=== PATIENT | male | born 1975 | race Caucasian/White ===

== ENCOUNTER 2016-11-23 13:21 | Inpatient (IN) | payer OTHER ==
[2016-11-23 14:12] VITALS: BMI 26.7
--- NOTE | 2016-11-23 14:17 | PN ---
Xital Signs Vital Signs: Vital Signs - 24 hr 11/23/16 14:04 Temperature 97.6 F Pulse Rate 83 Respiratory 18 Rate Blood Pressure 124/69 Medical/Surgical History - Patient Medical History Hx Anemia: No Hx Asthma: Yes (on albuterol inhaler) Hx Chronic Obstructive Pulmonary Disease (COPD): No Hx Cancer: No Hx Cardiac Disorders: No Hx Congestive Heart Failure: No Hx Hypertension: No Hx Hypercholesterolemia: No Hx Pacemaker: No HX Cerebrovascular Accident: No Hx Seizures: No Hx Dementia: No Hx Diabetes: No Hx Gastrointestinal Disorders: No Hx Liver Disease: No Hx Genitourinary Disorders: No Hx Sexually Transmitted Disorders: No Hx Renal Disease (ESRD): No Hx Thyroid Disease: No Hx Human Immunodeficiency Virus (HIV): No (negative last 2013) Hx Hepatitis C: No Hx Depression: Yes Hx Suicide Attempt: No Hx Bipolar Disorder: Yes (and anxiety on Seroquel and Lexapro) Hx Schizophrenia: No - Patient Surgical History Past Surgical History: No Hx Neurologic Surgery: No Hx Cataract Extraction: No Hx Cardiac Surgery: No Hx Lung Surgery: No Hx Breast Surgery: No Hx Breast Biopsy: No Hx Abdominal Surgery: No Hx Appendectomy: No Hx Cholecystectomy: No Hx Genitourinary Surgery: No Hx Section: No Hx Orthopedic Surgery: No Anesthesia Reaction: No - Substances Abused Heroin Route: Injection Frequency: Daily Amount used: 10 to 20 bags Age of first use: 22 Date of Last Use: 11/22/16 street methadone Route: Oral Frequency: 1-2 times per week Amount used: 60 to 80 mgs Age of first use: 41 Date of Last Use: 11/21/16 oxycodone Route: Oral Frequency: 3-6 times per week Amount used: 160 mgs to 240 mgs Age of first use: 37 Date of Last Use: 11/21/16 BHS Breath Alcohol Content Breath Alcohol Content: 0 Urine Drug Screen - Test Device Lot Number: [id number] Expiration Date: 05/08/18 - Control Is Test Valid: Yes - Results Drug Screen Negative: No Urine Drug Screen Results: OPI-Opiates, MTD-Methadone, OXY-Oxycodone
--- NOTE | 2016-11-23 14:26 | HP ---
COWS - Scale Resting Pulse: 1= [place] 81-100 Sweatin= Chills/Flushing Restless Observation: 3= Extraneous Movement Pupil Size: 2= Moderately Dilated Bone or Joint Aches: 2= Severe Diffuse Aches Runny Nose/ Eye Tearin= Runny Nose/Eyes GI Upset > 30mins: 3= Vomiting/Diarrhea Tremor Observation: 2= Slight Tremor Visible Yawning Observation: 2= >3x During Session Anxiety or Irritability: 2=Irritable/Anxious Goose Flesh Skin: 0=Smooth Skin COWS Score: 20 Admission ROS S - HPI Chief Complaint: i need help to stop using heroin,street methadon and oxycodone Allergies/Adverse Reactions: Allergies Allergy/AdvReac Type Severity Reaction Status Date / Time Fish Containing Products Allergy Intermediate Verified 06/09/16 14:27 No Known Drug Allergies Allergy Verified 06/09/16 14:27 History of Present Illness: this 41 years old male with heroin,methadone and oxycodone dependence,seek help to stop using,withdrawal symptom, last detox [facility] 06/09/16 to 06/12/16 several admissions in detox in the past longest period of sobriety 2 years anxiety and depression Exam Limitations: No Limitations - Ebola screening Have you traveled outside of the country in the last 21 days: No (N) Have you had contact with anyone from an Ebola affected area: No Have you been sick,other than usual withdrawal symptoms: No Do you have a fever: No - Review of Systems Constitutional: Chills, Diaphoresis, Loss of Appetite, Malaise, Night Sweats, Changes in sleep, Weakness, Unintentional Wgt. Loss EENT: reports: Tearing, Nose Congestion Respiratory: reports: No Symptoms reported, Other (asthma) Cardiac: reports: Palpitations GI: reports: Diarrhea, Nausea, Vomiting, Abdominal cramping : reports: No Symptoms Reported Musculoskeletal: reports: Back Pain, Joint Pain, Muscle Pain Integumentary: reports: Dryness Endocrine: reports: No Symptoms Reported Hematology: reports: No Symptoms Reported Psychiatric: reports: Anxious, Depressed Patient History - Patient Medical History Hx Anemia: No Hx Asthma: Yes (on albuterol inhaler) Hx Chronic Obstructive Pulmonary Disease (COPD): No Hx Cancer: No Hx Cardiac Disorders: No Hx Congestive Heart Failure: No Hx Hypertension: No Hx Hypercholesterolemia: No Hx Pacemaker: No HX Cerebrovascular Accident: No Hx Seizures: No Hx Dementia: No Hx Diabetes: No Hx Gastrointestinal Disorders: No Hx Liver Disease: No Hx Genitourinary Disorders: No Hx Sexually Transmitted Disorders: No Hx Renal Disease (ESRD): No Hx Thyroid Disease: No Hx Human Immunodeficiency Virus (HIV): No (negative last 2013) Hx Hepatitis C: No Hx Depression: Yes Hx Suicide Attempt: No Hx Bipolar Disorder: Yes (and anxiety on Seroquel and Lexapro) Hx Schizophrenia: No Other Medical History: no suicidal,no homicidal - Patient Surgical History Past Surgical History: No Hx Neurologic Surgery: No Hx Cataract Extraction: No Hx Cardiac Surgery: No Hx Lung Surgery: No Hx Breast Surgery: No Hx Breast Biopsy: No Hx Abdominal Surgery: No Hx Appendectomy: No Hx Cholecystectomy: No Hx Genitourinary Surgery: No Hx Section: No Hx Orthopedic Surgery: No Anesthesia Reaction: No - PPD History Previous Implant?: Yes Documented Results: Positive w/o proof Date: 05/31/15 Results: CXR NEG 11/24 PPD to be Administered?: No - Smoking Cessation Smoking history: Current every day smoker Have you smoked in the past 12 months: Yes Aproximately how many cigarettes per day: 20 Hx Chewing Tobacco Use: No Initiated information on smoking cessation: Yes 'Breaking Loose' booklet given: 11/23/16 - Substance & Tx. History Hx Alcohol Use: No Hx Substance Use: Yes Substance Use Type: Heroin, Opiates Hx Substance Use Treatment: Yes ([facility] 06/09/16 to 06/12/16 not completed) - Substances Abused Heroin Route: Injection Frequency: Daily Amount used: 10 to 20 bags Age of first use: 22 Date of Last Use: 11/22/16 street methadone Route: Oral Frequency: 1-2 times per week Amount used: 60 to 80 mgs Age of first use: 41 Date of Last Use: 11/21/16 oxycodone Route: Oral Frequency: 3-6 times per week Amount used: 160 mgs to 240 mgs Age of first use: 37 Date of Last Use: 11/21/16 Family Disease History - Family Disease History Family Disease History: Diabetes: Grandparent (etoh), Other: Grandparent, Father (heroin/alive) Admission Physical Exam BHS - Vital Signs Vital Signs: Vital Signs - 24 hr 11/23/16 14:04 Temperature 97.6 F Pulse Rate 83 Respiratory 18 Rate Blood Pressure 124/69 - Physical General Appearance: Yes: Moderate Distress, Tremorous, Irritable, Sweating, Anxious HEENTM: Yes: Nasal Congestion Respiratory: Yes: Lungs Clear Neck: Yes: Within Normal Limits Breast: Yes: Within Normal Limits Cardiology: Yes: Within Normal Limits, Regular Rhythm, Regular Rate, S1, S2 Abdominal: Yes: Within Normal Limits, Normal Bowel Sounds, Non Tender, Flat, Soft Genitourinary: Yes: Within Normal Limits Back: Yes: Muscle Spasm Musculoskeletal: Yes: Back pain, Joint Stiffness, Muscle Pain Extremities: Yes: Tremors Neurological: Yes: Within Normal Limits, 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 II-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 NML intact, Fully Oriented, Alert Integumentary: Yes: Dry Lymphatic: Yes: Within Normal Limits - Diagnostic (1) Positive PPD Current Visit: No Status: Acute (2) Weight loss Current Visit: No Status: Acute (3) Asthma Current Visit: No Status: Chronic Qualifiers: Asthma severity: unspecified severity Asthma complication type: uncomplicated Qualified Code(s): J45.909 - Unspecified asthma, uncomplicated (4) Bipolar II disorder Current Visit: No Status: Chronic (5) Nicotine dependence Current Visit: No Status: Chronic Qualifiers: Nicotine product type: cigarettes Substance use status: uncomplicated Qualified Code(s): F17.210 - Nicotine dependence, cigarettes, uncomplicated (6) Opioid dependence with withdrawal Current Visit: No Status: Chronic Cleared for Admission S - Detox or Rehab [facility] Level of Care: Medically Managed Detox Regimen/Protocol: Methadone S Breath Alcohol Content Breath Alcohol Content: 0 Vital Signs - Vital Signs Vital Signs Refused: No Temperature: 97.6 F Temperature Source: Oral Pulse Rate: 83 Respiratory Rate: 18 Blood Pressure: 124/69 BP Location: Left Arm - Height Height: 5 ft 8 in - Weight Weight: 176 lb Weight Measurement Method: Standing Scale Body Mass Index (BMI): 26.7 Urine Drug Screen - Test Device Lot Number: [id number] Expiration Date: 05/08/18 - Control Is Test Valid: Yes - Results Drug Screen Negative: No Urine Drug Screen Results: OPI-Opiates, MTD-Methadone, OXY-Oxycodone
[2016-11-23] MEDS ORDERED: P-EPHED 60MG/TRIPROLIDI 2.5MG TABLET PO PRN (14:50)
[2016-11-23] MEDS ORDERED: MAGNESIUM HYDROX 2400MG/30ML ORAL SUSPENSION 30 ML CUP PO PRN (14:50)
[2016-11-23] MEDS ORDERED: MENTHOL/PHENOL 1 EACH UD MM PRN (14:50)
[2016-11-23] MEDS ORDERED: LOPERAMIDE HCL 2 MG CAPSULE PO PRN (14:50)
[2016-11-23] MEDS ORDERED: guaiFENesin/D-METHORPHAN HB 10 ML UNIT-DOSE CUPS PO PRN (14:50)
[2016-11-23] MEDS ORDERED: METHADONE HCL 10 MG TABLET (FOR DETOX USE ONLY) PO ONE ×2 (14:50→23:00)
[2016-11-23] MEDS ORDERED: MAGNESIUM CITRATE 300 ML BOTTLE PO PRN (14:50)
[2016-11-23] MEDS ORDERED: NICOTINE POLACRILEX 2 MG GUM BUC PRN (14:50)
[2016-11-23] MEDS ORDERED: ACETAMINOPHEN 325 MG TABLET (FP) PO PRN (14:50)
[2016-11-23] MEDS ORDERED: MAG HYDROX/AL HYDROX/SIMETH 30 ML UNIT-DOSE CUP PO PRN (14:50)
[2016-11-23] MEDS: CYCLOBENZAPRINE HCL 10 MG TABLET (FP) PO PRN (16:16)
[2016-11-23] MEDS: NICOTINE 21 MG/24 HOURS TOPICAL PATCH TD SCH (16:16)
[2016-11-23] MEDS: diazePAM 5 MG TABLET PO PRN ×2 (16:17→22:28)
[2016-11-23 17:33] LABS: URINE APPEARANCE CLEAR; URINE BILIRUBIN NEGATIVE (NEGATIVE); URINE COLOR YELLOW; URINE GLUCOSE (UA) NEGATIVE (NEGATIVE); URINE KETONE NEGATIVE (NEGATIVE); URINE LEUK ESTERASE NEGATIVE (NEGATIVE); URINE NITRITE NEGATIVE (NEGATIVE); URINE PROTEIN NEGATIVE (NEGATIVE); URINE UROBILINOGEN NEGATIVE E.U./dl (0.2-1.0)
[2016-11-23 17:34] LABS: URINE BLOOD 1+ (NEGATIVE)
[2016-11-23 17:44] LABS: URINE MUCUS RARE; URINE RBC 3 /hpf (0-3); URINE WBC 1 /hpf (3-5)
[2016-11-23] MEDS: cloNIDine HCL 0.1 MG TABLET PO SCH (22:26)
[2016-11-23] MEDS: THIAMINE HCL 100 MG TABLET (FP) PO SCH (22:26)
[2016-11-23] MEDS: diphenhydrAMINE HCL 50 MG CAPSULE PO PRN (22:26)
[2016-11-24] MEDS: diazePAM 5 MG TABLET PO PRN ×4 (05:49→22:18)
[2016-11-24] MEDS: CYCLOBENZAPRINE HCL 10 MG TABLET (FP) PO PRN (05:49)
--- NOTE | 2016-11-24 09:24 | EKG ---
Test Reason : Blood Pressure : / mmHG Vent. Rate : 082 BPM Atrial Rate : 082 BPM P-R Int : 134 ms QRS Dur : 084 ms QT Int : 378 ms P-R-T Axes : 067 066 034 degrees QTc Int : 441 ms NORMAL SINUS RHYTHM NORMAL ECG NO PREVIOUS ECGS AVAILABLE Confirmed by JUDSON HUA MD ([id number]) on 11/24/2016 9:24:11 AM Referred By: Confirmed By:JUDSON HUA MD
[2016-11-24] MEDS ORDERED: METHADONE HCL 10 MG TABLET (FOR DETOX USE ONLY) PO ONE (10:00)
[2016-11-24 10:09] LABS: ALBUMIN 3.4 g/dl (3.4-5.0); ALK PHOS 64 U/L (45-117); ANION GAP 6 (8-16); BILIRUBIN,TOTAL 0.3 mg/dL (0.2-1.0); CALCIUM 8.9 mg/dL (8.5-10.1); CO2 29 mmol/L (21-32); CREATININE 0.8 mg/dL (0.7-1.3); GLUCOSE,RANDOM 81 mg/dL (74-106); SGOT/AST 12 U/L (15-37); SGPT/ALT 15 U/L (12-78); TOT PROT 6.3 g/dl (6.4-8.2)
--- NOTE | 2016-11-24 10:16 | CONSULT ---
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 Substance Abuse History: reports using heroin since 22 years old(10 bages daily) ,pain killers on and off. Medical History: Significant for BA,Positive PPD history. Psychiatric History: Reports psychiatric issues since 14 years old mostly behavioral problems,anxiety,depression.He was on therapy for a while.Patient started psychotropic medications since HS when he was dx with Bipolar disorder.He was placed on Seroquel,Lexapro with good response.Patient reports no psychiatric admissions,no h/o suicidal attempts.No psychiatric follow up for a while.Patient used to obtain psychiatric medications from local ER.He is willing to restasrt Laxapro 20 mg po daily and Seroquel 100 mg po hs. Physical/Sexual Abuse/Trauma History: denies Mental Status Exam - Mental Status Exam Alert and Oriented to: Time, Place, Person Cognitive Function: Grossly Intact Patient Appearance: Unkempt Mood: Nervous Affect: Labile Patient Behavior: Cooperative Speech Pattern: Clear Voice Loudness: Normal Thought Process: Goal Oriented Thought Disorder: Not Present Hallucinations: Denies Suicidal Ideation: Denies Homicidal Ideation: Denies Insight/Judgement: Fair Sleep: Fair Appetite: Fair Muscle strength/Tone: Normal Gait/Station: Normal Psychiatric Findings - Problem List ([place] 1, 2,3) (1) Positive PPD Current Visit: Yes Status: Chronic (2) Weight loss Current Visit: Yes Status: Chronic (3) Asthma Current Visit: Yes Status: Chronic Qualifiers: Asthma severity: unspecified severity Asthma complication type: uncomplicated Qualified Code(s): J45.909 - Unspecified asthma, uncomplicated (4) Bipolar II disorder Current Visit: Yes Status: Chronic (5) Cannabis dependence Current Visit: Yes Status: Chronic (6) Nicotine dependence Current Visit: No Status: Chronic Qualifiers: Nicotine product type: cigarettes Substance use status: uncomplicated Qualified Code(s): F17.210 - Nicotine dependence, cigarettes, uncomplicated - Initial Treatment Plan Initial Treatment Plan: Restart Lexapro 20 mg po daily and Seroquel 100 mg po hs.
--- NOTE | 2016-11-24 10:24 | PN ---
BHS COWS - Scale Resting Pulse: 1= [place] 81-100 Sweatin=Flushed/Facial Moisture Restless Observation: 1= Difficult to Sit Still Pupil Size: 0= Normal to Room Light Bone or Joint Aches: 2= Severe Diffuse Aches Runny Nose/ Eye Tearin= Runny Nose/Eyes GI Upset > 30mins: 2= Nausea/Diarrhea Tremor Observation of Outstretched Hands: 2= Slight Tremor Visible Yawning Observation: 1= 1-2x During Session Anxiety or Irritability: 2=Irritable/Anxious Goose Flesh Skin: 0=Smooth Skin COWS Score: 15 BHS Progress Note (SOAP) Subjective: ANXIETY,TREMORS,SWEATING,INTERRUPTED SLEEP,RESTLESS. Objective: 11/24/16 10:23 Vital Signs - 8 hr 11/24/16 11/24/16 03:30 06:37 Temperature 97.2 F L Pulse Rate 81 Respiratory 18 16 Rate Blood Pressure 103/68 Laboratory Tests 11/23/16 11:00 Urine Color Yellow Urine Appearance Clear Urine pH 5.0 Ur Specific [place] 1.029 Urine Protein Negative Urine Glucose (UA) Negative Urine Ketones Negative Urine Blood 1+ H Urine Nitrite Negative Urine Bilirubin Negative Urine Urobilinogen Negative Ur Leukocyte Esterase Negative Urine RBC 3 Urine WBC 1 Ur Epithelial Cells Rare Urine Mucus Rare U/A NOTED Assessment: 11/24/16 10:23 WITHDRAWAL SX. Plan: CONTINUE DETOX
[2016-11-24] MEDS: cloNIDine HCL 0.1 MG TABLET PO SCH ×2 (10:33→22:19)
[2016-11-24] MEDS: PRENATAL VITAMINS W/ FOLIC ACID TABLET (FP) PO SCH (10:33)
[2016-11-24] MEDS: NICOTINE 21 MG/24 HOURS TOPICAL PATCH TD SCH (10:34)
[2016-11-24 10:39] LABS: MCH 30.9 pg (25.7-33.7); MCHC 34.7 g/dl (32.0-35.9); MEAN CELL VOLUME 89.1 fl (80-96); MEAN PLT VOLUME 7.6 fl (7.5-11.1); PLATELET COUNT 413 K/MM3 (134-434); RDW 14.4 % (11.9-15.9); WHITE BLOOD COUNT 8.3 K/mm3 (4.0-10.0)
[2016-11-24 11:59] LABS: HIV 1 & 2 AB NEGATIVE; HIV 1 AGp24 NEGATIVE
[2016-11-24] MEDS ORDERED: PNEUMOC 13-VAL CONJ-DIP CRM/PF 0.5 ML DISP.SYRIN IM ONE (12:00)
[2016-11-24] MEDS ORDERED: INFLUENZA VACCINE 45 MCG/0.5 ML (MDV 16-17) IM ONE (12:00)
[2016-11-24] MEDS ORDERED: PNEUMOCOCCAL 23 VACCINE 0.5 ML VIAL IM ONE (12:00)
[2016-11-24] MEDS: ESCITALOPRAM OXALATE 20 MG TABLET (FP) PO SCH (12:30)
[2016-11-24] MEDS: IBUPROFEN 400 MG TABLET (FP) PO PRN (16:50)
[2016-11-24] MEDS: QUEtiapine FUMARATE 100 MG TABLET (FP) PO SCH (22:18)
[2016-11-24] MEDS: diphenhydrAMINE HCL 50 MG CAPSULE PO PRN (22:18)
[2016-11-24] MEDS: THIAMINE HCL 100 MG TABLET (FP) PO SCH (22:18)
[2016-11-25] MEDS: CYCLOBENZAPRINE HCL 10 MG TABLET (FP) PO PRN (03:26)
[2016-11-25] MEDS: IBUPROFEN 400 MG TABLET (FP) PO PRN ×2 (03:26→17:15)
[2016-11-25] MEDS: diazePAM 5 MG TABLET PO PRN ×3 (03:28→22:29)
[2016-11-25] MEDS ORDERED: METHADONE HCL 5 MG TABLET (FOR DETOX USE ONLY) PO ONE (10:00)
[2016-11-25] MEDS: ESCITALOPRAM OXALATE 20 MG TABLET (FP) PO SCH (10:23)
[2016-11-25] MEDS: cloNIDine HCL 0.1 MG TABLET PO SCH ×2 (10:23→22:26)
[2016-11-25] MEDS: PRENATAL VITAMINS W/ FOLIC ACID TABLET (FP) PO SCH (10:23)
[2016-11-25] MEDS: NICOTINE 21 MG/24 HOURS TOPICAL PATCH TD SCH (10:24)
--- NOTE | 2016-11-25 11:42 | PN ---
BHS COWS - Scale Resting Pulse: 1= [place] 81-100 Sweatin=Flushed/Facial Moisture Restless Observation: 1= Difficult to Sit Still Pupil Size: 0= Normal to Room Light Bone or Joint Aches: 4=Acute Joint/Muscle Pain (LEFT SHOULDER PAIN) Runny Nose/ Eye Tearin= Runny Nose/Eyes GI Upset > 30mins: 2= Nausea/Diarrhea Tremor Observation of Outstretched Hands: 2= Slight Tremor Visible Yawning Observation: 1= 1-2x During Session Anxiety or Irritability: 2=Irritable/Anxious Goose Flesh Skin: 0=Smooth Skin COWS Score: 17 BHS Progress Note (SOAP) Subjective: ANXIETY,SWEATING,INTERRUPTED SLEEP,ACUTE LT. SHOULDER PAIN,MUSCLE SPASM. Objective: 11/25/16 11:41 Vital Signs - 8 hr 11/25/16 11/25/16 06:18 09:19 Temperature 97 F L 97.4 F L Pulse Rate 96 H 92 H Respiratory 18 18 Rate Blood Pressure 120/75 111/68 Laboratory Tests 11/23/16 11/24/16 11/24/16 11:00 08:00 08:00 WBC 8.3 RBC 4.42 Hgb 13.7 Hct 39.4 MCV 89.1 MCHC 34.7 RDW 14.4 Plt Count 413 MPV 7.6 Sodium Potassium Chloride Carbon Dioxide Anion Gap BUN Creatinine Creat Clearance w eGFR Random Glucose Calcium Total Bilirubin AST ALT Alkaline Phosphatase Total Protein Albumin Urine Color Yellow Urine Appearance Clear Urine pH 5.0 Ur Specific [place] 1.029 Urine Protein Negative Urine Glucose (UA) Negative Urine Ketones Negative Urine Blood 1+ H Urine Nitrite Negative Urine Bilirubin Negative Urine Urobilinogen Negative Ur Leukocyte Esterase Negative Urine RBC 3 Urine WBC 1 Ur Epithelial Cells Rare Urine Mucus Rare RPR Titer HIV 1&2 Antibody Screen Negative HIV P24 Antigen Negative 11/24/16 11/24/16 08:00 08:00 WBC RBC Hgb Hct MCV MCHC RDW Plt Count MPV Sodium 138 Potassium 4.0 Chloride 103 Carbon Dioxide 29 Anion Gap 6 L BUN 12 Creatinine 0.8 Creat Clearance w eGFR > 60 Random Glucose 81 Calcium 8.9 Total Bilirubin 0.3 AST 12 L ALT 15 D Alkaline Phosphatase 64 Total Protein 6.3 L Albumin 3.4 Urine Color Urine Appearance Urine pH Ur Specific [place] Urine Protein Urine Glucose (UA) Urine Ketones Urine Blood Urine Nitrite Urine Bilirubin Urine Urobilinogen Ur Leukocyte Esterase Urine RBC Urine WBC Ur Epithelial Cells Urine Mucus RPR Titer Nonreactive HIV 1&2 Antibody Screen HIV P24 Antigen LABS NOTED Assessment: 11/25/16 11:42 WITHDRAWAL SX. Plan: CONTINUE DETOX
[2016-11-25] MEDS: QUEtiapine FUMARATE 100 MG TABLET (FP) PO SCH (22:26)
[2016-11-25] MEDS: diphenhydrAMINE HCL 50 MG CAPSULE PO PRN (22:27)
[2016-11-25] MEDS: THIAMINE HCL 100 MG TABLET (FP) PO SCH (22:27)
[2016-11-26] MEDS: diazePAM 5 MG TABLET PO PRN ×2 (05:42→10:33)
[2016-11-26] MEDS: CYCLOBENZAPRINE HCL 10 MG TABLET (FP) PO PRN (05:42)
[2016-11-26] MEDS ORDERED: METHADONE HCL 5 MG TABLET (FOR DETOX USE ONLY) PO ONE (10:00)
[2016-11-26] MEDS: PRENATAL VITAMINS W/ FOLIC ACID TABLET (FP) PO SCH (10:31)
[2016-11-26] MEDS: NICOTINE 21 MG/24 HOURS TOPICAL PATCH TD SCH (10:32)
[2016-11-26] MEDS: ESCITALOPRAM OXALATE 20 MG TABLET (FP) PO SCH (10:32)
[2016-11-26] MEDS: cloNIDine HCL 0.1 MG TABLET PO SCH ×2 (10:32→22:22)
[2016-11-26] MEDS: IBUPROFEN 400 MG TABLET (FP) PO PRN (12:49)
--- NOTE | 2016-11-26 15:43 | PN ---
BHS Progress Note (SOAP) Subjective: SWEATING,INTERRUPTED SLEEP,RESTLESS Objective: 11/26/16 15:42 Vital Signs - 8 hr 11/26/16 11/26/16 09:53 14:30 Temperature 97.0 F L 97.2 F L Pulse Rate 95 H 85 Respiratory 20 16 Rate Blood Pressure 101/68 97/63 Laboratory Last Values WBC 8.3 K/mm3 (4.0-10.0) 11/24/16 08:00 RBC 4.42 M/mm3 (4.00-5.60) 11/24/16 08:00 Hgb 13.7 GM/dL (11.7-16.9) 11/24/16 08:00 Hct 39.4 % (35.4-49) 11/24/16 08:00 MCV 89.1 fl (80-96) 11/24/16 08:00 MCHC 34.7 g/dl (32.0-35.9) 11/24/16 08:00 RDW 14.4 % (11.9-15.9) 11/24/16 08:00 Plt Count 413 K/MM3 (134-434) 11/24/16 08:00 MPV 7.6 fl (7.5-11.1) 11/24/16 08:00 Sodium 138 mmol/L (136-145) 11/24/16 08:00 Potassium 4.0 mmol/L (3.5-5.1) 11/24/16 08:00 Chloride 103 mmol/L (98-107) 11/24/16 08:00 Carbon Dioxide 29 mmol/L (21-32) 11/24/16 08:00 Anion Gap 6 (8-16) L 11/24/16 08:00 BUN 12 mg/dL (7-18) 11/24/16 08:00 Creatinine 0.8 mg/dL (0.7-1.3) 11/24/16 08:00 Creat Clearance w eGFR > 60 (>60) 11/24/16 08:00 Random Glucose 81 mg/dL (74-106) 11/24/16 08:00 Calcium 8.9 mg/dL (8.5-10.1) 11/24/16 08:00 Total Bilirubin 0.3 mg/dL (0.2-1.0) 11/24/16 08:00 AST 12 U/L (15-37) L 11/24/16 08:00 ALT 15 U/L (12-78) D 11/24/16 08:00 Alkaline Phosphatase 64 U/L (45-117) 11/24/16 08:00 Total Protein 6.3 g/dl (6.4-8.2) L 11/24/16 08:00 Albumin 3.4 g/dl (3.4-5.0) 11/24/16 08:00 Urine Color Yellow 11/23/16 11:00 Urine Appearance Clear 11/23/16 11:00 Urine pH 5.0 (5.0-8.0) 11/23/16 11:00 Ur Specific [place] 1.029 (1.001-1.035) 11/23/16 11:00 Urine Protein Negative (NEGATIVE) 11/23/16 11:00 Urine Glucose (UA) Negative (NEGATIVE) 11/23/16 11:00 Urine Ketones Negative (NEGATIVE) 11/23/16 11:00 Urine Blood 1+ (NEGATIVE) H 11/23/16 11:00 Urine Nitrite Negative (NEGATIVE) 11/23/16 11:00 Urine Bilirubin Negative (NEGATIVE) 11/23/16 11:00 Urine Urobilinogen Negative E.U./dl (0.2-1.0) 11/23/16 11:00 Ur Leukocyte Esterase Negative (NEGATIVE) 11/23/16 11:00 Urine RBC 3 /hpf (0-3) 11/23/16 11:00 Urine WBC 1 /hpf (3-5) 11/23/16 11:00 Ur Epithelial Cells Rare /hpf (FEW) 11/23/16 11:00 Urine Mucus Rare 11/23/16 11:00 RPR Titer Nonreactive (NONREACTIVE) 11/24/16 08:00 HIV 1&2 Antibody Screen Negative 11/24/16 08:00 HIV P24 Antigen Negative 11/24/16 08:00 LABS NOTED Assessment: 11/26/16 15:42 WITHDRAWAL SX. Plan: CONTINUE DETOX
[2016-11-26] MEDS: hydrOXYzine PAMOATE 50 MG CAPSULE (FP) PO PRN (17:18)
[2016-11-26] MEDS: QUEtiapine FUMARATE 100 MG TABLET (FP) PO SCH (22:22)
[2016-11-26] MEDS: THIAMINE HCL 100 MG TABLET (FP) PO SCH (22:22)
[2016-11-26] MEDS: diphenhydrAMINE HCL 50 MG CAPSULE PO PRN (22:22)
[2016-11-27] MEDS: CYCLOBENZAPRINE HCL 10 MG TABLET (FP) PO PRN (05:53)
[2016-11-27] MEDS: hydrOXYzine PAMOATE 50 MG CAPSULE (FP) PO PRN ×2 (05:53→22:24)
[2016-11-27] MEDS ORDERED: METHADONE HCL 10 MG TABLET (FOR DETOX USE ONLY) PO ONE (10:00)
[2016-11-27] MEDS: ESCITALOPRAM OXALATE 20 MG TABLET (FP) PO SCH (10:22)
[2016-11-27] MEDS: PRENATAL VITAMINS W/ FOLIC ACID TABLET (FP) PO SCH (10:22)
[2016-11-27] MEDS: NICOTINE 21 MG/24 HOURS TOPICAL PATCH TD SCH (10:23)
[2016-11-27] MEDS: cloNIDine HCL 0.1 MG TABLET PO SCH ×2 (10:23→22:24)
[2016-11-27] MEDS: IBUPROFEN 400 MG TABLET (FP) PO PRN (17:41)
--- NOTE | 2016-11-27 20:43 | PN ---
[id number] Vital Signs - 8 hr 11/27/16 11/27/16 14:22 18:00 Temperature 96.8 F L 97.4 F L Pulse Rate 89 86 Respiratory 18 18 Rate Blood Pressure 104/63 99/58 Assessment: 11/27/16 20:43 WITHDRAWAL SX. Plan: CONTINUE DETOX
[2016-11-27] MEDS: THIAMINE HCL 100 MG TABLET (FP) PO SCH (22:24)
[2016-11-27] MEDS: QUEtiapine FUMARATE 100 MG TABLET (FP) PO SCH (22:24)
[2016-11-28] MEDS ORDERED: METHADONE HCL 5 MG TABLET (FOR DETOX USE ONLY) PO ONE (06:00)
[2016-11-28] MEDS: CYCLOBENZAPRINE HCL 10 MG TABLET (FP) PO PRN (06:03)
[2016-11-28] MEDS: hydrOXYzine PAMOATE 50 MG CAPSULE (FP) PO PRN ×2 (06:03→22:29)
[2016-11-28] MEDS: PRENATAL VITAMINS W/ FOLIC ACID TABLET (FP) PO SCH (10:24)
[2016-11-28] MEDS: NICOTINE 21 MG/24 HOURS TOPICAL PATCH TD SCH (10:24)
[2016-11-28] MEDS: ESCITALOPRAM OXALATE 20 MG TABLET (FP) PO SCH (10:24)
[2016-11-28] MEDS: cloNIDine HCL 0.1 MG TABLET PO SCH ×2 (10:24→22:28)
[2016-11-28] MEDS: IBUPROFEN 400 MG TABLET (FP) PO PRN (10:26)
--- NOTE | 2016-11-28 15:39 | PN ---
BHS Progress Note (SOAP) Subjective: no complaints Objective: 11/28/16 15:38 Vital Signs - 24 hr 11/27/16 11/27/16 11/28/16 18:00 21:52 00:29 Temperature 97.4 F L 97.4 F L Pulse Rate 86 80 Respiratory 18 18 18 Rate Blood Pressure 99/58 107/69 11/28/16 11/28/16 11/28/16 03:28 06:05 09:37 Temperature 97.0 F L 98.5 F Pulse Rate 81 88 Respiratory 18 16 18 Rate Blood Pressure 106/65 105/65 11/28/16 13:35 Temperature Pulse Rate 85 Respiratory 18 Rate Blood Pressure 98/64 Laboratory Tests 11/23/16 11/24/16 11/24/16 11:00 08:00 08:00 WBC 8.3 RBC 4.42 Hgb 13.7 Hct 39.4 MCV 89.1 MCHC 34.7 RDW 14.4 Plt Count 413 MPV 7.6 Sodium Potassium Chloride Carbon Dioxide Anion Gap BUN Creatinine Creat Clearance w eGFR Random Glucose Calcium Total Bilirubin AST ALT Alkaline Phosphatase Total Protein Albumin Urine Color Yellow Urine Appearance Clear Urine pH 5.0 Ur Specific [place] 1.029 Urine Protein Negative Urine Glucose (UA) Negative Urine Ketones Negative Urine Blood 1+ H Urine Nitrite Negative Urine Bilirubin Negative Urine Urobilinogen Negative Ur Leukocyte Esterase Negative Urine RBC 3 Urine WBC 1 Ur Epithelial Cells Rare Urine Mucus Rare RPR Titer HIV 1&2 Antibody Screen Negative HIV P24 Antigen Negative 11/24/16 11/24/16 08:00 08:00 WBC RBC Hgb Hct MCV MCHC RDW Plt Count MPV Sodium 138 Potassium 4.0 Chloride 103 Carbon Dioxide 29 Anion Gap 6 L BUN 12 Creatinine 0.8 Creat Clearance w eGFR > 60 Random Glucose 81 Calcium 8.9 Total Bilirubin 0.3 AST 12 L ALT 15 D Alkaline Phosphatase 64 Total Protein 6.3 L Albumin 3.4 Urine Color Urine Appearance Urine pH Ur Specific [place] Urine Protein Urine Glucose (UA) Urine Ketones Urine Blood Urine Nitrite Urine Bilirubin Urine Urobilinogen Ur Leukocyte Esterase Urine RBC Urine WBC Ur Epithelial Cells Urine Mucus RPR Titer Nonreactive HIV 1&2 Antibody Screen HIV P24 Antigen Assessment: 11/28/16 15:39 completed detox, medically stable Plan: d/c today
--- NOTE | 2016-11-28 15:51 | DS ---
[facility] Detox Discharge Summary Admission Date: 11/23/16 Discharge Date: 11/28/16 - History Present History: Cannabis Dependence, Opioid Dependence Pertinent Past History: asthma, anxiety, depression, insomnia, bipolar do, nicotine dependence - Physical Exam Results Vital Signs: Vital Signs Temperature 98.5 F 11/28/16 09:37 Pulse Rate 85 11/28/16 13:35 Respiratory Rate 18 11/28/16 13:35 Blood Pressure 98/64 11/28/16 13:35 O2 Sat by Pulse Oximetry (%) Pertinent Admission Physical Exam Findings: withdrawal sx - Treatment Hospital Course: Detox Protocol Followed, Detoxed Safely, Responded well, Discharged Condition Good, Rehab Referral Accepted Patient has Accepted a Rehab Referral to: Yes - Medication Discharge Medications: Ambulatory Orders Albuterol Sulfate Inhaler - [Ventolin Hfa Inhaler -] 2 inh PO Q4H PRN 08/31/15 Quetiapine Fumarate [Seroquel -] 200 mg PO HS 02/26/16 Escitalopram Oxalate [Lexapro -] 20 mg PO DAILY #30 tablet 02/27/16 Escitalopram Oxalate [Lexapro -] 20 mg PO DAILY #30 tablet 11/24/16 Quetiapine Fumarate [Seroquel -] 100 mg PO HS #30 tablet MDD 100 11/24/16 - Diagnosis (1) Asthma Current Visit: Yes Status: Chronic Qualifiers: Asthma severity: unspecified severity Asthma complication type: uncomplicated Qualified Code(s): J45.909 - Unspecified asthma, uncomplicated (2) Bipolar II disorder Current Visit: Yes Status: Chronic (3) Cannabis dependence Current Visit: Yes Status: Chronic (4) Positive PPD Current Visit: Yes Status: Chronic (5) Weight loss Current Visit: Yes Status: Chronic (6) Drug-induced mood disorder Current Visit: No Status: Acute (7) Nicotine dependence Current Visit: No Status: Chronic Qualifiers: Nicotine product type: cigarettes Substance use status: uncomplicated Qualified Code(s): F17.210 - Nicotine dependence, cigarettes, uncomplicated (8) Opioid dependence with withdrawal Current Visit: No Status: Chronic - AMA Did Patient Leave Against Medical Advice: No
[2016-11-28] MEDS: THIAMINE HCL 100 MG TABLET (FP) PO SCH (22:28)
[2016-11-28] MEDS: QUEtiapine FUMARATE 100 MG TABLET (FP) PO SCH (22:28)
[2016-11-29 06:23] VITALS: BP 96/60; PULSE 81; TEMP 97.9
[2016-11-29] MEDS: IBUPROFEN 400 MG TABLET (FP) PO PRN (08:01)
== END 2016-11-29 09:15 | disposition home or self-care (01) | DRG 773 ==
LOC: YASAS 13:21 → Y3N 15:07
PROVIDERS: ADMIT Internal Medicine; ATTEND Internal Medicine
PROC: HZ2ZZZZ Detoxification Services for Substance Abuse Treatment (ICD-10-PCS; principal; 2016-11-23)
DX: F11.23 Opioid dependence with withdrawal (principal); F12.20 Cannabis dependence, uncomplicated; F17.210 Nicotine dependence, cigarettes, uncomplicated; F31.81 Bipolar II disorder; F19.24 Other psychoactive substance dependence with psychoactive substance-induced mood disorder; J45.909 Unspecified asthma, uncomplicated; R76.11 Nonspecific reaction to tuberculin skin test without active tuberculosis; Z87.898 Personal history of other specified conditions
CPT/HCPCS: 36415; 71010-TC; 73000-TC-LT; 73030-TC-LT; 80053; 81003; 81015; 85027; 86593; 87389; 90732; 93005; 93010; G0009

== ENCOUNTER 2017-03-15 14:05 | Inpatient (IN) | payer SELFPAY ==
[2017-03-15 14:42] VITALS: BMI 25.8
--- NOTE | 2017-03-15 16:27 | HP ---
COWS - Scale Resting Pulse: 2= [place] 101-120 Sweatin=Flushed/Facial Moisture Restless Observation: 1= Difficult to Sit Still Pupil Size: 2= Moderately Dilated Bone or Joint Aches: 2= Severe Diffuse Aches Runny Nose/ Eye Tearin= Runny Nose/Eyes GI Upset > 30mins: 2= Nausea/Diarrhea Tremor Observation: 2= Slight Tremor Visible Yawning Observation: 1= 1-2x During Session Anxiety or Irritability: 2=Irritable/Anxious Goose Flesh Skin: 0=Smooth Skin COWS Score: 18 Admission ROS S - [facility] Chief Complaint: Withdrawal sx. Allergies/Adverse Reactions: Allergies Allergy/AdvReac Type Severity Reaction Status Date / Time Fish Containing Products Allergy Intermediate Verified 03/15/17 15:32 No Known Drug Allergies Allergy Verified 03/15/17 15:32 History of Present Illness: 41 y/o man with a long hx. of drug dependence is admitted for detox. Pt. has been in previous detox,denies significant period drug free. Exam Limitations: No Limitations - Ebola screening Have you traveled outside of the country in the last 21 days: No Have you had contact with anyone from an Ebola affected area: No Have you been sick,other than usual withdrawal symptoms: No Do you have a fever: No - Review of Systems Constitutional: Diaphoresis EENT: reports: Nose Congestion Respiratory: reports: No Symptoms reported Cardiac: reports: No Symptoms Reported GI: reports: Nausea, Abdominal cramping : reports: No Symptoms Reported Musculoskeletal: reports: Back Pain, Joint Pain, Muscle Pain Integumentary: reports: Sweating Neuro: reports: Tremors Endocrine: reports: No Symptoms Reported Hematology: reports: No Symptoms Reported Psychiatric: reports: No Sypmtoms Reported Other Systems: Reviewed and Negative Patient History - Patient Medical History Hx Anemia: No Hx Asthma: Yes (albuterol) Hx Chronic Obstructive Pulmonary Disease (COPD): No Hx Cancer: No Hx Cardiac Disorders: No Hx Congestive Heart Failure: No Hx Hypertension: No Hx Hypercholesterolemia: No Hx Pacemaker: No HX Cerebrovascular Accident: No Hx Seizures: No Hx Dementia: No Hx Diabetes: No Hx Gastrointestinal Disorders: No Hx Liver Disease: No Hx Genitourinary Disorders: No Hx Sexually Transmitted Disorders: No Hx Renal Disease (ESRD): No Hx Thyroid Disease: No Hx Human Immunodeficiency Virus (HIV): No Hx Hepatitis C: No Hx Depression: Yes Hx Suicide Attempt: No Hx Bipolar Disorder: Yes (and anxiety on Seroquel and Lexapro) Hx Schizophrenia: No - Patient Surgical History Past Surgical History: No Hx Neurologic Surgery: No Hx Cataract Extraction: No Hx Cardiac Surgery: No Hx Lung Surgery: No Hx Breast Surgery: No Hx Breast Biopsy: No Hx Abdominal Surgery: No Hx Appendectomy: No Hx Cholecystectomy: No Hx Genitourinary Surgery: No Hx Section: No Hx Orthopedic Surgery: No Anesthesia Reaction: No - PPD History Previous Implant?: Yes Documented Results: Positive w/o proof Implanted On Prior [facility] Admission?: No Date: 11/25/16 Results: CXR NEG on 11/25 PPD to be Administered?: No - Smoking Cessation Smoking history: Current every day smoker Have you smoked in the past 12 months: Yes Aproximately how many cigarettes per day: 20 Cigars Per Day: 0 Hx Chewing Tobacco Use: No Initiated information on smoking cessation: Yes 'Breaking Loose' booklet given: 03/15/17 - Substance & Tx. History Hx Alcohol Use: No Hx Substance Use: Yes Substance Use Type: Heroin Hx Substance Use Treatment: Yes (Detox) - Substances Abused Heroin Route: Injection Frequency: Daily Amount used: 10 BAGS Age of first use: 25 Date of Last Use: 03/15/17 Family Disease History - Family Disease History Family Disease History: Heart Disease: Grandparent (etoh,HTN), Other: Grandparent, Father (heroin/alive) Admission Physical Exam BHS - Vital Signs Vital Signs: Vital Signs - 24 hr 03/15/17 14:37 Temperature 97.9 F Pulse Rate 110 H Respiratory 18 Rate Blood Pressure 126/75 - Physical General Appearance: Yes: Sweating, Anxious HEENTM: Yes: TM Buldging, Nasal Congestion Respiratory: Yes: Chest Non-Tender, Lungs Clear, Normal Breath Sounds Neck: Yes: Supple Breast: Yes: Breast Exam Deferred Cardiology: Yes: Regular Rhythm, Regular Rate, S1, S2 Abdominal: Yes: Normal Bowel Sounds, Non Tender, Soft Genitourinary: Yes: Within Normal Limits Back: Yes: Within Normal Limits Musculoskeletal: Yes: full range of Motion Extremities: Yes: Tremors Neurological: Yes: Fully Oriented, Alert Integumentary: Yes: Diaphoresis Lymphatic: Yes: Within Normal Limits - Diagnostic (1) Asthma Current Visit: Yes Status: Chronic Qualifiers: Asthma severity: mild intermittent Asthma complication type: uncomplicated Qualified Code(s): J45.20 - Mild intermittent asthma, uncomplicated (2) Cannabis dependence Current Visit: Yes Status: Chronic (3) Nicotine dependence Current Visit: Yes Status: Chronic Qualifiers: Nicotine product type: cigarettes Substance use status: uncomplicated Qualified Code(s): F17.210 - Nicotine dependence, cigarettes, uncomplicated (4) Opioid dependence with withdrawal Current Visit: Yes Status: Chronic (5) Positive PPD Current Visit: No Status: Chronic Cleared for Admission [facility] - Detox or Rehab [facility] Level of Care: Medically Managed Detox Regimen/Protocol: Methadone [facility] Breath Alcohol Content Breath Alcohol Content: 0 Urine Drug Screen - Results Drug Screen Negative: No Urine Drug Screen Results: THC-Marijuana, OPI-Opiates, MTD-Methadone
[2017-03-15] MEDS ORDERED: MAGNESIUM CITRATE 300 ML BOTTLE PO PRN (16:34)
[2017-03-15] MEDS ORDERED: METHADONE HCL 10 MG TABLET (FOR DETOX USE ONLY) PO ONE ×2 (16:34→23:00)
[2017-03-15] MEDS ORDERED: MAGNESIUM HYDROX 2400MG/30ML ORAL SUSPENSION 30 ML CUP PO PRN (16:34)
[2017-03-15] MEDS ORDERED: P-EPHED 60MG/TRIPROLIDI 2.5MG TABLET PO PRN (16:34)
[2017-03-15] MEDS ORDERED: NICOTINE POLACRILEX 4 MG GUM BC PRN (16:34)
[2017-03-15] MEDS ORDERED: guaiFENesin/D-METHORPHAN HB 10 ML UNIT-DOSE CUPS PO PRN (16:34)
[2017-03-15] MEDS ORDERED: LOPERAMIDE HCL 2 MG CAPSULE PO PRN (16:34)
[2017-03-15] MEDS ORDERED: diphenhydrAMINE HCL 50 MG CAPSULE PO PRN (16:34)
[2017-03-15] MEDS ORDERED: hydrOXYzine PAMOATE 50 MG CAPSULE (FP) PO PRN (16:34)
[2017-03-15] MEDS ORDERED: MENTHOL/PHENOL 1 EACH UD MM PRN (16:34)
[2017-03-15] MEDS ORDERED: ACETAMINOPHEN 325 MG TABLET (FP) PO PRN (16:34)
[2017-03-15] MEDS ORDERED: MAG HYDROX/AL HYDROX/SIMETH 30 ML UNIT-DOSE CUP PO PRN (16:34)
[2017-03-15] MEDS ORDERED: ALBUTEROL SO4 6.7 GM HFA INHALER IH PRN (16:36)
[2017-03-15] MEDS ORDERED: ALBUTEROL SO4 2.5/IPRATROPIUM 0.5 INH SOL 3 ML VIAL.NEB. NEB PRN (16:36)
[2017-03-15] MEDS: diazePAM 5 MG TABLET PO PRN (17:58)
[2017-03-15] MEDS: NICOTINE 21 MG/24 HOURS TOPICAL PATCH TD SCH (18:53)
[2017-03-15 19:44] LABS: URINE APPEARANCE CLEAR; URINE BILIRUBIN NEGATIVE (NEGATIVE); URINE BLOOD NEGATIVE (NEGATIVE); URINE COLOR DKYELLOW; URINE GLUCOSE (UA) NEGATIVE (NEGATIVE); URINE KETONE TRACE (NEGATIVE); URINE LEUK ESTERASE NEGATIVE (NEGATIVE); URINE NITRITE NEGATIVE (NEGATIVE); URINE PROTEIN NEGATIVE (NEGATIVE); URINE UROBILINOGEN NEGATIVE E.U./dl (0.2-1.0)
[2017-03-15] MEDS: THIAMINE HCL 100 MG TABLET (FP) PO SCH (22:03)
[2017-03-16] MEDS: diazePAM 5 MG TABLET PO PRN ×4 (04:57→22:25)
[2017-03-16] MEDS ORDERED: HALOPERIDOL 5 MG TABLET (FP) PO PRN (08:58)
--- NOTE | 2017-03-16 08:58 | CONSULT ---
[facility] Psychiatric Consult - Data Date of interview: 03/16/17 Admission source: [facility] Identifying data: This is 41 years old male with history of Bipolar Disorder, no psychiatric hospitalization history intoxicated with: Opioids, Cannabis and Nicotine Substance Abuse History: Smoking Cessation. Smoking history: Current every day smoker. Have you smoked in the past 12 months: Yes. Aproximately how many cigarettes per day: 20. Cigars Per Day: 0. Hx Chewing Tobacco Use: No. Initiated information on smoking cessation: Yes. 'Breaking Loose' booklet given : 03/15/17. - Substance & Tx. History. Hx Alcohol Use: No. Hx Substance Use: Yes. Substance Use Type: Heroin. Hx Substance Use Treatment: Yes (Detox). - Substances Abused. Heroin. Route: Injection. Frequency: Daily. Amount used: 10 BAGS. Age of first use: 25. Date of Last Use: 03/15/17 Medical History: PPD+ history, Weight loss history Psychiatric History: Patien reprots to carry Bipolar Disorder, reprots taking porior to admsision: Seroquel 200mg pop qhs. Lexapro 20mg poqd Physical/Sexual Abuse/Trauma History: Denies Additional Comment: Seroquel 200mg pop qhs. Lexapro 20mg poqd Mental Status Exam - Mental Status Exam Alert and Oriented to: Person Cognitive Function: Fair Mood: Sad Affect: Mood Congruent Patient Behavior: Cooperative Speech Pattern: Appropriate Voice Loudness: Mildly Soft/Quiet Thought Process: Goal Oriented Thought Disorder: Being Controlled Hallucinations: Denies Suicidal Ideation: Denies Homicidal Ideation: Denies Insight/Judgement: Fair Sleep: Difficulty falling asleep Appetite: Weight loss Muscle strength/Tone: Mild Hypotonicity Gait/Station: Normal Additional Comments: Seroquel 200mg pop qhs. Lexapro 20mg poqd Psychiatric Findings - Problem List ([place] 1, 2,3) (1) Cannabis dependence Current Visit: Yes Status: Chronic (2) Nicotine dependence Current Visit: Yes Status: Chronic Qualifiers: Nicotine product type: cigarettes Substance use status: uncomplicated Qualified Code(s): F17.210 - Nicotine dependence, cigarettes, uncomplicated (3) Opioid dependence with withdrawal Current Visit: Yes Status: Chronic (4) Drug-induced mood disorder Current Visit: No Status: Acute (5) Bipolar II disorder Current Visit: No Status: Chronic (6) Weight loss Current Visit: No Status: Chronic - Initial Treatment Plan Initial Treatment Plan: Seroquel 200mg pop qhs. Lexapro 20mg poqd
[2017-03-16] MEDS ORDERED: METHADONE HCL 10 MG TABLET (FOR DETOX USE ONLY) PO ONE (10:00)
[2017-03-16] MEDS ORDERED: HALOPERIDOL 5 MG TABLET (FP) PO SCH (10:00)
[2017-03-16] MEDS ORDERED: QUEtiapine FUMARATE 50 MG TABLET PO SCH (10:00)
[2017-03-16 10:02] LABS: MCH 30.3 pg (25.7-33.7); MCHC 34.5 g/dl (32.0-35.9); MEAN CELL VOLUME 87.8 fl (80-96); MEAN PLT VOLUME 7.4 fl (7.5-11.1); PLATELET COUNT 404 K/MM3 (134-434); RDW 14.1 % (11.9-15.9)
[2017-03-16] MEDS: PRENATAL VITAMINS W/ FOLIC ACID TABLET (FP) PO SCH (10:09)
[2017-03-16] MEDS: ESCITALOPRAM OXALATE 20 MG TABLET (FP) PO SCH (10:11)
[2017-03-16] MEDS: NICOTINE 21 MG/24 HOURS TOPICAL PATCH TD SCH (10:11)
[2017-03-16 10:20] LABS: ALBUMIN 3.4 g/dl (3.4-5.0); ANION GAP 8 (8-16); CALCIUM 8.5 mg/dL (8.5-10.1); CO2 26 mmol/L (21-32); GLUCOSE,RANDOM 86 mg/dL (74-106)
[2017-03-16 10:24] LABS: ALK PHOS 64 U/L (45-117); BILIRUBIN,TOTAL 0.7 mg/dL (0.2-1.0); COCKROFT - GAULT 154.52; CREATININE 0.7 mg/dL (0.7-1.3); SGOT/AST 13 U/L (15-37); SGPT/ALT 21 U/L (12-78); TOT PROT 6.3 g/dl (6.4-8.2)
--- NOTE | 2017-03-16 11:16 | PN ---
[facility] COWS - Scale Resting Pulse: 1= [place] 81-100 Sweatin=Flushed/Facial Moisture Restless Observation: 1= Difficult to Sit Still Pupil Size: 1= Pupils >than Normal Bone or Joint Aches: 2= Severe Diffuse Aches Runny Nose/ Eye Tearin= Runny Nose/Eyes GI Upset > 30mins: 1= Stomach Cramp Tremor Observation of Outstretched Hands: 1= Tremor [place], Not Seen Yawning Observation: 0= None Anxiety or Irritability: 2=Irritable/Anxious Goose Flesh Skin: 0=Smooth Skin COWS Score: 13 BHS Progress Note (SOAP) Subjective: interrupted sleep, sweats, shakes, nasal congestion , knee and back pain Objective: 03/16/17 11:14 Vital Signs Temperature 98.2 F 03/16/17 09:51 Pulse Rate 94 H 03/16/17 09:51 Respiratory Rate 18 03/16/17 09:51 Blood Pressure 125/83 03/16/17 09:51 O2 Sat by Pulse Oximetry (%) Laboratory Tests 03/15/17 03/16/17 03/16/17 19:30 07:00 07:00 WBC 13.0 H D RBC 4.51 Hgb 13.6 Hct 39.6 MCV 87.8 MCHC 34.5 RDW 14.1 Plt Count 404 MPV 7.4 L Sodium 140 Potassium 4.2 Chloride 106 Carbon Dioxide 26 Anion Gap 8 BUN 15 D Creatinine 0.7 Creat Clearance w eGFR > 60 Random Glucose 86 Calcium 8.5 Total Bilirubin 0.7 D AST 13 L ALT 21 D Alkaline Phosphatase 64 Total Protein 6.3 L Albumin 3.4 Urine Color Dkyellow Urine Appearance Clear Urine pH 5.0 Urine Protein Negative Urine Glucose (UA) Negative Urine Ketones Trace H Urine Blood Negative Urine Nitrite Negative Urine Bilirubin Negative Urine Urobilinogen Negative Ur Leukocyte Esterase Negative pt aox3 ambulating , nasal congestion Assessment: 03/16/17 11:14 withdrawal sx's Plan: cont. detox increase fluids motrin prn
[2017-03-16] MEDS ORDERED: busPIRone HCL 5 MG TABLET PO SCH (14:00)
[2017-03-16] MEDS: IBUPROFEN 400 MG TABLET (FP) PO PRN (17:18)
[2017-03-16] MEDS ORDERED: MIRTAZAPINE 15 MG TABLET (FP) PO SCH (22:00)
[2017-03-16] MEDS: THIAMINE HCL 100 MG TABLET (FP) PO SCH (22:21)
[2017-03-16] MEDS: QUEtiapine FUMARATE 200 MG TABLET PO SCH (22:21)
[2017-03-17] MEDS: diazePAM 5 MG TABLET PO PRN ×4 (04:01→22:06)
[2017-03-17] MEDS ORDERED: METHADONE HCL 5 MG TABLET (FOR DETOX USE ONLY) PO ONE (10:00)
[2017-03-17 10:03] LABS: BASOPHIL 0.4 % (0-2.0); EOSINOPHIL 0.7 % (0-4.5); MCH 30.3 pg (25.7-33.7); MCHC 34.5 g/dl (32.0-35.9); MEAN CELL VOLUME 87.9 fl (80-96); MEAN PLT VOLUME 7.3 fl (7.5-11.1); PLATELET COUNT 427 K/MM3 (134-434); RDW 14.4 % (11.9-15.9); WHITE BLOOD COUNT 9.2 K/mm3 (4.0-10.0)
[2017-03-17] MEDS: ESCITALOPRAM OXALATE 20 MG TABLET (FP) PO SCH (10:10)
[2017-03-17] MEDS: PRENATAL VITAMINS W/ FOLIC ACID TABLET (FP) PO SCH (10:10)
[2017-03-17] MEDS: NICOTINE 21 MG/24 HOURS TOPICAL PATCH TD SCH (10:12)
[2017-03-17] MEDS ORDERED: TRIMETHOBENZAMIDE HCL 300 MG CAPSULE PO PRN (10:25)
--- NOTE | 2017-03-17 10:40 | PN ---
BHS COWS - Scale Resting Pulse: 1= [place] 81-100 Sweatin= Chills/Flushing Restless Observation: 1= Difficult to Sit Still Pupil Size: 0= Normal to Room Light Bone or Joint Aches: 2= Severe Diffuse Aches Runny Nose/ Eye Tearin= None GI Upset > 30mins: 2= Nausea/Diarrhea Tremor Observation of Outstretched Hands: 2= Slight Tremor Visible Yawning Observation: 1= 1-2x During Session Anxiety or Irritability: 2=Irritable/Anxious Goose Flesh Skin: 0=Smooth Skin COWS Score: 12 BHS Progress Note (SOAP) Subjective: nausea body aches sweats interrupted sleep Objective: 03/17/17 10:39 Vital Signs Temperature 96.8 F L 03/17/17 05:58 Pulse Rate 75 03/17/17 05:58 Respiratory Rate 16 03/17/17 05:58 Blood Pressure 113/64 03/17/17 05:58 O2 Sat by Pulse Oximetry (%) Laboratory Tests 03/15/17 03/16/17 03/16/17 19:30 07:00 07:00 WBC 13.0 H D RBC 4.51 Hgb 13.6 Hct 39.6 MCV 87.8 MCHC 34.5 RDW 14.1 Plt Count 404 MPV 7.4 L Neutrophils % Lymphocytes % Monocytes % Eosinophils % Basophils % Sodium 140 Potassium 4.2 Chloride 106 Carbon Dioxide 26 Anion Gap 8 BUN 15 D Creatinine 0.7 Creat Clearance w eGFR > 60 Random Glucose 86 Calcium 8.5 Total Bilirubin 0.7 D AST 13 L ALT 21 D Alkaline Phosphatase 64 Total Protein 6.3 L Albumin 3.4 Urine Color Dkyellow Urine Appearance Clear Urine pH 5.0 Ur Specific [place] >= 1.030 H Urine Protein Negative Urine Glucose (UA) Negative Urine Ketones Trace H Urine Blood Negative Urine Nitrite Negative Urine Bilirubin Negative Urine Urobilinogen Negative Ur Leukocyte Esterase Negative RPR Titer 03/16/17 03/17/17 07:00 07:00 WBC 9.2 RBC 4.75 Hgb 14.4 Hct 41.7 MCV 87.9 MCHC 34.5 RDW 14.4 Plt Count 427 MPV 7.3 L Neutrophils % 54.0 Lymphocytes % 31.8 Monocytes % 13.1 H Eosinophils % 0.7 Basophils % 0.4 Sodium Potassium Chloride Carbon Dioxide Anion Gap BUN Creatinine Creat Clearance w eGFR Random Glucose Calcium Total Bilirubin AST ALT Alkaline Phosphatase Total Protein Albumin Urine Color Urine Appearance Urine pH Ur Specific [place] Urine Protein Urine Glucose (UA) Urine Ketones Urine Blood Urine Nitrite Urine Bilirubin Urine Urobilinogen Ur Leukocyte Esterase RPR Titer Nonreactive awake/alert ambulating no acute distress Assessment: 03/17/17 10:39 withdrawal sx Plan: continue detox increase fluids tigan po prn
--- NOTE | 2017-03-17 11:23 | EKG ---
Test Reason : Blood Pressure : / mmHG Vent. Rate : 077 BPM Atrial Rate : 077 BPM P-R Int : 134 ms QRS Dur : 086 ms QT Int : 372 ms P-R-T Axes : 061 061 013 degrees QTc Int : 420 ms NORMAL SINUS RHYTHM NORMAL ECG WHEN COMPARED WITH ECG OF 23-NOV-2016 16:50, NO SIGNIFICANT CHANGE WAS FOUND BASELINE ARTIFACT Confirmed by ANJU ORTIZ MD ([id number]) on 03/17/2017 11:23:26 AM Referred By: Confirmed By:ANJU ORTIZ MD
[2017-03-17] MEDS: IBUPROFEN 400 MG TABLET (FP) PO PRN (21:04)
[2017-03-17] MEDS: CYCLOBENZAPRINE HCL 10 MG TABLET (FP) PO PRN (21:04)
[2017-03-17] MEDS: QUEtiapine FUMARATE 200 MG TABLET PO SCH (22:05)
[2017-03-17] MEDS: THIAMINE HCL 100 MG TABLET (FP) PO SCH (22:05)
--- NOTE | 2017-03-18 09:36 | PN ---
BHS Progress Note (SOAP) Subjective: better , but still having interrupted sleep, sweats, chills , bodyaches Objective: 03/18/17 09:34 Vital Signs Temperature 97.2 F L 03/18/17 06:00 Pulse Rate 63 03/18/17 06:00 Respiratory Rate 18 03/18/17 06:00 Blood Pressure 103/56 03/18/17 06:00 O2 Sat by Pulse Oximetry (%) Laboratory Tests 03/15/17 03/16/17 03/16/17 19:30 07:00 07:00 WBC 13.0 H D RBC 4.51 Hgb 13.6 Hct 39.6 MCV 87.8 MCHC 34.5 RDW 14.1 Plt Count 404 MPV 7.4 L Neutrophils % Lymphocytes % Monocytes % Eosinophils % Basophils % Sodium 140 Potassium 4.2 Chloride 106 Carbon Dioxide 26 Anion Gap 8 BUN 15 D Creatinine 0.7 Creat Clearance w eGFR > 60 Random Glucose 86 Calcium 8.5 Total Bilirubin 0.7 D AST 13 L ALT 21 D Alkaline Phosphatase 64 Total Protein 6.3 L Albumin 3.4 Urine Color Dkyellow Urine Appearance Clear Urine pH 5.0 Ur Specific [place] >= 1.030 H Urine Protein Negative Urine Glucose (UA) Negative Urine Ketones Trace H Urine Blood Negative Urine Nitrite Negative Urine Bilirubin Negative Urine Urobilinogen Negative Ur Leukocyte Esterase Negative RPR Titer 03/16/17 03/17/17 07:00 07:00 WBC 9.2 RBC 4.75 Hgb 14.4 Hct 41.7 MCV 87.9 MCHC 34.5 RDW 14.4 Plt Count 427 MPV 7.3 L Neutrophils % 54.0 Lymphocytes % 31.8 Monocytes % 13.1 H Eosinophils % 0.7 Basophils % 0.4 Sodium Potassium Chloride Carbon Dioxide Anion Gap BUN Creatinine Creat Clearance w eGFR Random Glucose Calcium Total Bilirubin AST ALT Alkaline Phosphatase Total Protein Albumin Urine Color Urine Appearance Urine pH Ur Specific [place] Urine Protein Urine Glucose (UA) Urine Ketones Urine Blood Urine Nitrite Urine Bilirubin Urine Urobilinogen Ur Leukocyte Esterase RPR Titer Nonreactive pt aox3 in nad ambulating Assessment: 03/18/17 09:35 withdrawal sx's Plan: cont. detox increase fluids motrin prn
[2017-03-18] MEDS ORDERED: METHADONE HCL 5 MG TABLET (FOR DETOX USE ONLY) PO ONE (10:00)
[2017-03-18] MEDS: ESCITALOPRAM OXALATE 20 MG TABLET (FP) PO SCH (10:07)
[2017-03-18] MEDS: PRENATAL VITAMINS W/ FOLIC ACID TABLET (FP) PO SCH (10:07)
[2017-03-18] MEDS: diazePAM 5 MG TABLET PO PRN (10:07)
[2017-03-18] MEDS: CYCLOBENZAPRINE HCL 10 MG TABLET (FP) PO PRN ×2 (10:08→17:51)
[2017-03-18] MEDS: NICOTINE 21 MG/24 HOURS TOPICAL PATCH TD SCH (10:08)
[2017-03-18 18:11] VITALS: BP 102/64; PULSE 70; TEMP 98.2
[2017-03-18] MEDS ORDERED: RANITIDINE HCL 150 MG TABLET (FP) PO ONE (19:25)
--- NOTE | 2017-03-18 20:57 | DS ---
[facility] Detox Discharge Summary Admission Date: 03/15/17 Discharge Date: 03/18/17 - History Present History: Opioid Dependence Additional Comments: PATIENT INSISTS TO LEAVE THE UNIT, REFUSES TO WAIT FACE TO FACE WITH THE PROVIDER, AGREES TO FOLLOW UP WITH PRIMARY CARE PROVIDER FOR CHRONIC MEDICAL CONDITIONS WELL AFTERCARE ARRANGED BY THE COUNSELOR. Pertinent Past History: ASTHMA BIPOLAR II - Physical Exam Results Vital Signs: Vital Signs Temperature 98.2 F 03/18/17 18:09 Pulse Rate 70 03/18/17 18:09 Respiratory Rate 18 03/18/17 18:09 Blood Pressure 102/64 03/18/17 18:09 O2 Sat by Pulse Oximetry (%) Pertinent Admission Physical Exam Findings: WITHDRAWAL SX Laboratory Last Values WBC 9.2 K/mm3 (4.0-10.0) 03/17/17 07:00 RBC 4.75 M/mm3 (4.00-5.60) 03/17/17 07:00 Hgb 14.4 GM/dL (11.7-16.9) 03/17/17 07:00 Hct 41.7 % (35.4-49) 03/17/17 07:00 MCV 87.9 fl (80-96) 03/17/17 07:00 MCHC 34.5 g/dl (32.0-35.9) 03/17/17 07:00 RDW 14.4 % (11.9-15.9) 03/17/17 07:00 Plt Count 427 K/MM3 (134-434) 03/17/17 07:00 MPV 7.3 fl (7.5-11.1) L 03/17/17 07:00 Neutrophils % 54.0 % (42.8-82.8) 03/17/17 07:00 Lymphocytes % 31.8 % (8-40) 03/17/17 07:00 Monocytes % 13.1 % (3.8-10.2) H 03/17/17 07:00 Eosinophils % 0.7 % (0-4.5) 03/17/17 07:00 Basophils % 0.4 % (0-2.0) 03/17/17 07:00 Sodium 140 mmol/L (136-145) 03/16/17 07:00 Potassium 4.2 mmol/L (3.5-5.1) 03/16/17 07:00 Chloride 106 mmol/L (98-107) 03/16/17 07:00 Carbon Dioxide 26 mmol/L (21-32) 03/16/17 07:00 Anion Gap 8 (8-16) 03/16/17 07:00 BUN 15 mg/dL (7-18) D 03/16/17 07:00 Creatinine 0.7 mg/dL (0.7-1.3) 03/16/17 07:00 Creat Clearance w eGFR > 60 (>60) 03/16/17 07:00 Random Glucose 86 mg/dL (74-106) 03/16/17 07:00 Calcium 8.5 mg/dL (8.5-10.1) 03/16/17 07:00 Total Bilirubin 0.7 mg/dL (0.2-1.0) D 03/16/17 07:00 AST 13 U/L (15-37) L 03/16/17 07:00 ALT 21 U/L (12-78) D 03/16/17 07:00 Alkaline Phosphatase 64 U/L (45-117) 03/16/17 07:00 Total Protein 6.3 g/dl (6.4-8.2) L 03/16/17 07:00 Albumin 3.4 g/dl (3.4-5.0) 03/16/17 07:00 Urine Color Dkyellow 03/15/17 19:30 Urine Appearance Clear 03/15/17 19:30 Urine pH 5.0 (5.0-8.0) 03/15/17 19:30 Ur Specific [place] >= 1.030 (1.005-1.025) H 03/15/17 19:30 Urine Protein Negative (NEGATIVE) 03/15/17 19:30 Urine Glucose (UA) Negative (NEGATIVE) 03/15/17 19:30 Urine Ketones Trace (NEGATIVE) H 03/15/17 19:30 Urine Blood Negative (NEGATIVE) 03/15/17 19:30 Urine Nitrite Negative (NEGATIVE) 03/15/17 19:30 Urine Bilirubin Negative (NEGATIVE) 03/15/17 19:30 Urine Urobilinogen Negative E.U./dl (0.2-1.0) 03/15/17 19:30 Ur Leukocyte Esterase Negative (NEGATIVE) 03/15/17 19:30 RPR Titer Nonreactive (NONREACTIVE) 03/16/17 07:00 LAB NOTED - Treatment Hospital Course: Detox Protocol Followed, Responded well - Medication Discharge Medications: Ambulatory Orders Albuterol Sulfate Inhaler - [Ventolin Hfa Inhaler -] 2 inh PO Q4H PRN 08/31/15 Quetiapine Fumarate [Seroquel -] 200 mg PO HS 02/26/16 Escitalopram Oxalate [Lexapro -] 20 mg PO DAILY #30 tablet 11/24/16 Bupropion HCl [Wellbutrin Xl -] 300 mg PO DAILY #30 tab 03/16/17 Buspirone HCl [Buspar -] 5 mg PO TID #90 tablet 03/16/17 Escitalopram Oxalate [Lexapro -] 20 mg PO DAILY #30 tablet 03/16/17 Escitalopram Oxalate [Lexapro -] 20 mg PO DAILY #30 tablet 03/16/17 Haloperidol [Haldol -] 5 mg PO DAILY #30 tablet 03/16/17 Mirtazapine [Remeron -] 45 mg PO HS #30 tablet 03/16/17 Quetiapine Fumarate [Seroquel -] 50 mg PO BID #60 tablet 03/16/17 Quetiapine Fumarate [Seroquel -] 200 mg PO HS #30 tab 03/16/17 Quetiapine Fumarate [Seroquel -] 200 mg PO HS #30 tab 03/16/17 - Diagnosis (1) Asthma Current Visit: Yes Status: Chronic Qualifiers: Asthma severity: mild intermittent Asthma complication type: uncomplicated Qualified Code(s): J45.20 - Mild intermittent asthma, uncomplicated (2) Opioid dependence with withdrawal Current Visit: Yes Status: Acute (3) Bipolar II disorder Current Visit: Yes Status: Suspected - AMA Did Patient Leave Against Medical Advice: Yes
[2017-03-19] MEDS ORDERED: METHADONE HCL 10 MG TABLET (FOR DETOX USE ONLY) PO ONE (10:00)
[2017-03-20] MEDS ORDERED: METHADONE HCL 5 MG TABLET (FOR DETOX USE ONLY) PO ONE (06:00)
== END 2017-03-18 20:15 | disposition left against medical advice (07) | DRG 770 ==
LOC: YASAS 14:05 → Y6N 15:56
PROVIDERS: ADMIT Internal Medicine Addiction Medicine; ATTEND Internal Medicine
PROC: HZ2ZZZZ Detoxification Services for Substance Abuse Treatment (ICD-10-PCS; principal; 2017-03-15)
DX: F11.23 Opioid dependence with withdrawal (principal); F12.20 Cannabis dependence, uncomplicated; F17.210 Nicotine dependence, cigarettes, uncomplicated; F31.81 Bipolar II disorder; F19.24 Other psychoactive substance dependence with psychoactive substance-induced mood disorder; J45.20 Mild intermittent asthma, uncomplicated; R76.11 Nonspecific reaction to tuberculin skin test without active tuberculosis; Z87.898 Personal history of other specified conditions
CPT/HCPCS: 36415; 80053; 81003; 85025; 85027; 86593; 93005; 93010

== ENCOUNTER 2021-04-18 08:41 | Emergency (ER) | payer OTHER ==
[2021-04-18 08:54] VITALS: BP 144/75; PULSE 88; TEMP 98.9; BMI 27.3
[2021-04-18] MEDS ORDERED: ACETAMINOPHEN 500 MG TABLET (FP) PO ONE (09:30)
[2021-04-18] MEDS ORDERED: ACETAMINOPHEN 500 MG TABLET (FP) ONE (09:46)
== END 2021-04-18 11:36 | disposition home or self-care (01) ==
LOC: JERFT 08:41
DX: S01.112A Laceration without foreign body of left eyelid and periocular area, initial encounter (principal); S00.83XA Contusion of other part of head, initial encounter
CPT/HCPCS: 70450-TC; 70486-TC; 99284-25

== ENCOUNTER 2022-10-25 14:49 | Inpatient (IN) | payer OTHER ==
[2022-10-25 15:05] VITALS: BMI 24.0
[2022-10-25] MEDS ORDERED: NALOXONE HCL (KLOXXADO) 8 MG SPRAY NS PRN (16:54)
[2022-10-25] MEDS ORDERED: NICOTINE POLACRILEX 2 MG GUM BUC PRN (16:54)
[2022-10-25] MEDS ORDERED: DICYCLOMINE HCL 10 MG CAPSULE PO PRN (16:54)
[2022-10-25] MEDS ORDERED: MAGNESIUM HYDROX 2400MG/30ML ORAL SUSPENSION 30 ML CUP PO PRN (16:54)
[2022-10-25] MEDS ORDERED: MAG HYDROX/AL HYDROX/SIMETH 30 ML UNIT-DOSE CUP PO PRN (16:54)
[2022-10-25] MEDS ORDERED: BENZOCAINE/MENTHOL (CHLORASEPTIC ) LOZENGE MM PRN (16:54)
[2022-10-25] MEDS ORDERED: ACETAMINOPHEN 325 MG TABLET (FP) PO PRN ×2 (16:54)
[2022-10-25] MEDS ORDERED: LOPERAMIDE HCL 2 MG CAPSULE PO PRN (16:54)
[2022-10-25] MEDS ORDERED: BISMUTH SUBSALICYLATE 524 MG/30 ML PO PRN (16:54)
[2022-10-25] MEDS ORDERED: ONDANSETRON *ODT* 4 MG TABLET SL PRN (16:54)
[2022-10-25] MEDS ORDERED: POLYETHYLENE GLYCOL (HEALTHYLAX) 3350 17 GM PACKET PO PRN (16:54)
[2022-10-25] MEDS ORDERED: methaDONE HCL 10 MG TABLET (FOR DETOX USE ONLY) PO ONE ×2 (17:30→19:00)
[2022-10-25] MEDS: IBUPROFEN 400 MG TABLET (FP) PO PRN (19:09)
[2022-10-25] MEDS: MELATONIN 5 MG TABLETS PO SCH (22:35)
[2022-10-25] MEDS: THIAMINE HCL 100 MG TABLET (FP) PO SCH (22:35)
[2022-10-26] MEDS ORDERED: ALBUTEROL SO4 HFA INHALER IH PRN (09:12)
[2022-10-26] MEDS ORDERED: NICOTINE 14 MG/24 HOURS TOPICAL PATCH TD SCH (10:00)
[2022-10-26] MEDS ORDERED: PRENATAL VITAMINS W/ FOLIC ACID TABLET (FP) PO SCH (10:00)
[2022-10-26] MEDS: METHOCARBAMOL 500 MG TABLET PO PRN ×2 (10:12→22:15)
[2022-10-26] MEDS: IBUPROFEN 600 MG TABLET (FP) PO PRN ×2 (10:13→17:36)
[2022-10-26] MEDS: diazePAM 5 MG TABLET PO PRN ×3 (13:20→22:17)
[2022-10-26] MEDS: cloNIDine HCL 0.1 MG TABLET PO PRN (17:35)
[2022-10-26 21:16] VITALS: BP 105/75; RESP 17; TEMP 97.1
[2022-10-26] MEDS: THIAMINE HCL 100 MG TABLET (FP) PO SCH (22:13)
[2022-10-26] MEDS: MELATONIN 5 MG TABLETS PO SCH (22:13)
[2022-10-26] MEDS: IBUPROFEN 400 MG TABLET (FP) PO PRN (22:15)
[2022-10-27] MEDS: METHOCARBAMOL 500 MG TABLET PO PRN (03:59)
[2022-10-27] MEDS: cloNIDine HCL 0.1 MG TABLET PO PRN (03:59)
[2022-10-27 04:02] VITALS: PULSE 85
[2022-10-27] MEDS ORDERED: methaDONE HCL 10 MG TABLET (FOR DETOX USE ONLY) PO ONE (10:00)
[2022-10-29] MEDS ORDERED: methaDONE HCL 10 MG TABLET (FOR DETOX USE ONLY) PO ONE (10:00)
== END 2022-10-27 07:15 | disposition left against medical advice (07) | DRG 770 ==
LOC: YASAS 14:49 → Y6N 17:48
PROVIDERS: ADMIT Allergy & Immunology; ATTEND Surgery
PROC: HZ2ZZZZ Detoxification Services for Substance Abuse Treatment (ICD-10-PCS; principal; 2022-10-25)
DX: F11.23 Opioid dependence with withdrawal (principal); F12.20 Cannabis dependence, uncomplicated; F17.210 Nicotine dependence, cigarettes, uncomplicated; F31.9 Bipolar disorder, unspecified; F41.9 Anxiety disorder, unspecified; F39 Unspecified mood [affective] disorder; J45.20 Mild intermittent asthma, uncomplicated; R00.0 Tachycardia, unspecified; Z86.11 Personal history of tuberculosis; Z56.0 Unemployment, unspecified
CPT/HCPCS: 93005; 93010; C9803-CS; Q0162; U0003; U0005

== ENCOUNTER 2023-01-29 14:22 | Inpatient (IN) | payer OTHER ==
[2023-01-29] MEDS ORDERED: FENTANYL CITRATE/PF 50 MCG/ML VIAL ONE ×3 (16:24→17:35)
[2023-01-29] MEDS ORDERED: cloNIDine HCL 0.1 MG TABLET PO PRN (19:05)
[2023-01-29] MEDS ORDERED: methaDONE HCL 10 MG TABLET (FOR DETOX USE ONLY) PO ONE (19:05)
[2023-01-29] MEDS ORDERED: ALBUTEROL SO4 HFA INHALER IH PRN (19:38)
[2023-01-29] MEDS ORDERED: PANTOPRAZOLE 40 MG TABLET PO ONE (19:45)
[2023-01-29] MEDS ORDERED: methaDONE HCL 10 MG TABLET ONE (19:46)
[2023-01-29] MEDS: SODIUM CHLORIDE 1,000 ML IV SCH (20:02)
[2023-01-29] MEDS: PANTOPRAZOLE 40 MG TABLET PO SCH (20:02)
[2023-01-30] MEDS: ACETAMINOPHEN 1000 MG/100 ML BAG IVPB PRN ×2 (00:36→09:18)
[2023-01-30] MEDS: MELATONIN 1 MG TABLET PO SCH (00:36)
[2023-01-30 04:24] LABS: URINE APPEARANCE CLEAR; URINE BILIRUBIN NEGATIVE (NEGATIVE); URINE COLOR YELLOW; URINE GLUCOSE (UA) NEGATIVE (NEGATIVE); URINE KETONE NEGATIVE (NEGATIVE); URINE LEUK ESTERASE NEGATIVE (NEGATIVE); URINE NITRITE NEGATIVE (NEGATIVE); URINE PROTEIN NEGATIVE (NEGATIVE)
[2023-01-30 04:32] LABS: COCAINE, UR NEGATIVE (NEGATIVE); PHENCYCLIDINE,URINE NEGATIVE (NEGATIVE); URINE AMPHETAMINES NEGATIVE (NEGATIVE); URINE BARBITURATES NEGATIVE (NEGATIVE); URINE BENZODIAZEPINES NEGATIVE (NEGATIVE)
[2023-01-30 04:51] LABS: METHADONE, UR POSITIVE (NEGATIVE); OPIATES, URI POSITIVE (NEGATIVE)
[2023-01-30] MEDS: NICOTINE 14 MG/24 HOURS TOPICAL PATCH TD SCH ×2 (06:11→09:21)
[2023-01-30 07:55] LABS: BASO % 0.4 % (0-2.0); EOS % 0.4 % (0-4.5); HEMATOCRIT 39.3 % (35.4-49); INR 1.1 (0.83-1.09); LYMPH % 23.9 % (8-40); MCHC 35.6 g/dl (32.0-35.9); MEAN CELL VOLUME 81.6 fl (80-96); MEAN PLT VOLUME 7.1 fl (7.5-11.1); MONO % 9.7 % (3.8-10.2); NEUT % 65.6 % (42.8-82.8); PLATELET COUNT 477 10^3/uL (134-434); PROTHROMBIN TIME (PATIENT) 12.7 SEC (9.7-13.0); RBC 4.82 M/mm3 (4.00-5.60); RDW 15.8 % (11.9-15.9); WHITE BLOOD COUNT 13.1 K/mm3 (4.0-10.0)
[2023-01-30 07:58] LABS: ACTIVATED PTT 22.9 SECONDS (25.2-36.5)
[2023-01-30 08:19] LABS: CHOLESTEROL 191 mg/dL (50-200)
[2023-01-30 08:21] LABS: LDL CHOLESTEROL (ONLY SJRH) 142 mg/dL (5-100)
[2023-01-30 08:23] LABS: HDL CHOLESTEROL 34 mg/dL (40-60)
[2023-01-30 08:25] LABS: ALBUMIN 3.5 g/dl (3.4-5.0)
[2023-01-30 08:26] LABS: BLOOD UREA NITROGEN 7.8 mg/dL (7-18); CALCIUM 8.8 mg/dL (8.5-10.1); MAGNESIUM 2.1 mg/dL (1.8-2.4)
[2023-01-30 08:27] LABS: CREATININE 0.6 mg/dL (0.55-1.3); PHOSPHOROUS 3.8 mg/dL (2.5-4.9); TOT PROT 7.3 g/dl (6.4-8.2)
[2023-01-30 08:29] LABS: BILIRUBIN,TOTAL 0.6 mg/dL (0.2-1)
[2023-01-30] MEDS: PANTOPRAZOLE 40 MG TABLET PO SCH (09:17)
[2023-01-30] MEDS: ENOXAPARIN NA (PORCINE) 40 MG/0.4 ML DISP.SYRIN SQ SCH (09:22)
[2023-01-30] MEDS ORDERED: FLU VACC QS2022-23(6MOS UP)/PF 60 MCG/0.5 ML SYRINGE IM ONE (10:00)
[2023-01-30] MEDS ORDERED: LORazepam 2 MG/ML SDV VIAL IVPUSH PRN (10:40)
[2023-01-30] MEDS ORDERED: LORazepam 2 MG/ML SDV VIAL IVPUSH ONE (10:45)
[2023-01-30] MEDS: SODIUM CHLORIDE 1,000 ML IV SCH (18:35)
[2023-01-31] MEDS: MELATONIN 1 MG TABLET PO SCH ×2 (00:18→21:53)
[2023-01-31 09:54] LABS: HEMATOCRIT 36.8 % (35.4-49); MCH 29.2 pg (25.7-33.7); MCHC 35.4 g/dl (32.0-35.9); MEAN CELL VOLUME 82.5 fl (80-96); MEAN PLT VOLUME 7.3 fl (7.5-11.1); PLATELET COUNT 433 10^3/uL (134-434); RBC 4.46 M/mm3 (4.00-5.60); RDW 15.7 % (11.9-15.9); WHITE BLOOD COUNT 11.5 K/mm3 (4.0-10.0)
[2023-01-31] MEDS ORDERED: methaDONE HCL 10 MG TABLET PO ONE (10:00)
[2023-01-31] MEDS: ENOXAPARIN NA (PORCINE) 40 MG/0.4 ML DISP.SYRIN SQ SCH (10:12)
[2023-01-31] MEDS: NICOTINE 14 MG/24 HOURS TOPICAL PATCH TD SCH (10:12)
[2023-01-31] MEDS: PANTOPRAZOLE 40 MG TABLET PO SCH (10:12)
[2023-01-31 10:18] LABS: CALCIUM 8.7 mg/dL (8.5-10.1)
[2023-01-31 10:19] LABS: ALBUMIN 3.4 g/dl (3.4-5.0); BLOOD UREA NITROGEN 9.9 mg/dL (7-18); MAGNESIUM 2.2 mg/dL (1.8-2.4)
[2023-01-31 10:23] LABS: CREATININE 0.7 mg/dL (0.55-1.3)
[2023-01-31 10:25] LABS: BILIRUBIN,TOTAL 0.7 mg/dL (0.2-1); TOT PROT 7.2 g/dl (6.4-8.2)
[2023-02-01] MEDS: ENOXAPARIN NA (PORCINE) 40 MG/0.4 ML DISP.SYRIN SQ SCH (09:33)
[2023-02-01] MEDS: NICOTINE 14 MG/24 HOURS TOPICAL PATCH TD SCH (09:34)
[2023-02-01] MEDS: PANTOPRAZOLE 40 MG TABLET PO SCH (09:34)
[2023-02-01 10:00] LABS: ALBUMIN 3.5 g/dl (3.4-5.0); BLOOD UREA NITROGEN 10.1 mg/dL (7-18); MAGNESIUM 2.2 mg/dL (1.8-2.4)
[2023-02-01 10:02] LABS: CREATININE 0.8 mg/dL (0.55-1.3); PHOSPHOROUS 2.8 mg/dL (2.5-4.9)
[2023-02-01 10:04] LABS: BILIRUBIN,TOTAL 0.7 mg/dL (0.2-1); TOT PROT 7.3 g/dl (6.4-8.2)
[2023-02-01 10:05] LABS: HEMATOCRIT 38.8 % (35.4-49); HEMOGLOBIN 13.9 GM/dL (11.7-16.9); MCH 29.6 pg (25.7-33.7); MCHC 35.8 g/dl (32.0-35.9); MEAN CELL VOLUME 82.7 fl (80-96); MEAN PLT VOLUME 7.1 fl (7.5-11.1); PLATELET COUNT 482 10^3/uL (134-434); RDW 15.7 % (11.9-15.9); WHITE BLOOD COUNT 11.2 K/mm3 (4.0-10.0)
[2023-02-01] MEDS: MELATONIN 1 MG TABLET PO SCH (21:29)
[2023-02-02 08:42] LABS: INR 1.05 (0.83-1.09); PROTHROMBIN TIME (PATIENT) 12.2 SEC (9.7-13.0)
[2023-02-02 08:48] LABS: HEMATOCRIT 39.7 % (35.4-49); HEMOGLOBIN 14.1 GM/dL (11.7-16.9); MCH 28.9 pg (25.7-33.7); MCHC 35.4 g/dl (32.0-35.9); MEAN CELL VOLUME 81.7 fl (80-96); MEAN PLT VOLUME 7.3 fl (7.5-11.1); PLATELET COUNT 464 10^3/uL (134-434); RBC 4.86 M/mm3 (4.00-5.60); RDW 15.9 % (11.9-15.9); WHITE BLOOD COUNT 9.3 K/mm3 (4.0-10.0)
[2023-02-02 08:51] LABS: ACTIVATED PTT 22.5 SECONDS (25.2-36.5)
[2023-02-02 09:04] LABS: CALCIUM 9.3 mg/dL (8.5-10.1)
[2023-02-02 09:05] LABS: ALBUMIN 3.8 g/dl (3.4-5.0); BLOOD UREA NITROGEN 12.6 mg/dL (7-18); MAGNESIUM 2.3 mg/dL (1.8-2.4)
[2023-02-02 09:08] LABS: CREATININE 0.8 mg/dL (0.55-1.3); PHOSPHOROUS 3.2 mg/dL (2.5-4.9)
[2023-02-02 09:09] LABS: BILIRUBIN,TOTAL 0.5 mg/dL (0.2-1); TOT PROT 8.2 g/dl (6.4-8.2)
[2023-02-02] MEDS ORDERED: BUPIVACAINE HCL/PF 0.25% (2.5MG/ML) 10 ML VIAL ONE (09:50)
[2023-02-02] MEDS ORDERED: PROPOFOL 20 ML ONE ×2 (09:52→13:31)
[2023-02-02] MEDS ORDERED: ROCURONIUM BROMIDE 50 MG/5 ML SYRINGE ONE (09:53)
[2023-02-02] MEDS ORDERED: SUCCINYLCHOLINE CHLORIDE 200 MG/10 ML SYRINGE ONE (09:53)
[2023-02-02] MEDS ORDERED: KETAMINE HCL 500 MG/10 ML VIAL ONE (09:53)
[2023-02-02] MEDS ORDERED: MIDAZOLAM HCL 2 MG/2 ML SINGLE DOSE VIAL ONE ×2 (09:53→13:57)
[2023-02-02] MEDS ORDERED: LIDOCAINE HCL/PF 2% SDV 5ML VIAL ONE (09:54)
[2023-02-02] MEDS ORDERED: methaDONE HCL 10 MG TABLET PO ONE (10:00)
[2023-02-02] MEDS: PANTOPRAZOLE 40 MG TABLET PO SCH (10:24)
[2023-02-02] MEDS: NICOTINE 14 MG/24 HOURS TOPICAL PATCH TD SCH (10:24)
[2023-02-02] MEDS ORDERED: ceFAZolin SODIUM 1 GM VIAL IVPB ONE (11:30)
[2023-02-02] MEDS ORDERED: ceFAZolin SODIUM 1 GM VIAL ONE (11:41)
[2023-02-02] MEDS ORDERED: DEXAMETHASONE SOD PHOSPHATE 4 MG/1 ML VIAL ONE (11:55)
[2023-02-02] MEDS ORDERED: ONDANSETRON 4 MG/2 ML VIAL ONE ×2 (11:55→13:06)
[2023-02-02] MEDS ORDERED: BUPIVACAINE HCL/PF 0.25% (2.5MG/ML) 10 ML VIAL IJ ONE (12:45)
[2023-02-02] MEDS ORDERED: GLYCOPYRROLATE 0.2 MG/1 ML VIAL ONE (12:57)
[2023-02-02] MEDS ORDERED: NEOSTIGMINE METHYLSULFATE 0.5 MG/1 ML - 10 ML MDV ONE (12:57)
[2023-02-02] MEDS ORDERED: HYDROmorphone HCl 2 MG/ML VIAL ONE ×2 (13:04→13:14)
[2023-02-02] MEDS ORDERED: ALBUTEROL SO4 0.083% IH SOL 2.5 MG/3 ML VIAL.NEB. NEB ONE (13:24)
[2023-02-02] MEDS ORDERED: ONDANSETRON 4 MG/2 ML VIAL IVPUSH PRN (14:01)
[2023-02-02] MEDS ORDERED: LACTATED RINGERS SOLUTION 1,000 ML IV SCH (14:15)
[2023-02-02] MEDS ORDERED: ALBUTEROL SO4 HFA INHALER IH PRN (14:16)
[2023-02-02] MEDS: ACETAMINOPHEN 1000 MG/100 ML BAG IVPB PRN ×2 (14:23→20:18)
[2023-02-02] MEDS: HYDROmorphone HCl 2 MG/ML VIAL IVPUSH PRN ×3 (14:50→15:20)
[2023-02-02] MEDS: oxyCODONE HCL 5 MG TABLET PO PRN ×2 (17:16→22:37)
[2023-02-02] MEDS ORDERED: morphine SULFATE 4 MG/ML VIAL IVPUSH ONE (18:13)
[2023-02-02] MEDS: LORazepam 2 MG/ML SDV VIAL IVPUSH PRN (20:14)
[2023-02-02] MEDS ORDERED: CHLORHEXIDINE GLUCONATE 4% CLEANSER FOR DECOLONIZATION TP SCH (22:00)
[2023-02-02] MEDS ORDERED: MUPIROCIN 2% TOPICAL OINTMENT FOR DECOLONIZATION NS SCH (22:00)
[2023-02-02] MEDS: MELATONIN 1 MG TABLET PO SCH (22:39)
[2023-02-02] MEDS ORDERED: HYDROmorphone HCl 2 MG/ML VIAL IVPUSH PRN (23:36)
[2023-02-02] MEDS ORDERED: HYDROmorphone HCl 2 MG/ML VIAL IVPUSH ONE (23:37)
[2023-02-02] MEDS: ACETAMINOPHEN 1000 MG/100 ML BAG IVPB SCH (23:49)
[2023-02-03] MEDS: LORazepam 2 MG/ML SDV VIAL IVPUSH PRN (00:15)
[2023-02-03] MEDS: oxyCODONE HCL 5 MG TABLET PO PRN ×2 (02:15→21:08)
[2023-02-03] MEDS: ACETAMINOPHEN 1000 MG/100 ML BAG IVPB SCH ×3 (05:45→16:59)
[2023-02-03 07:28] LABS: CALCIUM 9.1 mg/dL (8.5-10.1)
[2023-02-03 07:29] LABS: BLOOD UREA NITROGEN 10.9 mg/dL (7-18)
[2023-02-03 07:32] LABS: CREATININE 0.8 mg/dL (0.55-1.3); PHOSPHOROUS 4.5 mg/dL (2.5-4.9)
[2023-02-03] MEDS: NICOTINE 14 MG/24 HOURS TOPICAL PATCH TD SCH (09:58)
[2023-02-03] MEDS: HEPARIN NA (PORCINE) 5,000 UNITS/ML 1ML VIAL SQ SCH ×2 (09:59→21:10)
[2023-02-03] MEDS: PANTOPRAZOLE 40 MG TABLET PO SCH (09:59)
[2023-02-03] MEDS: KETOROLAC TROMETHAMINE 30 MG/1 ML VIAL IVPUSH PRN (10:14)
[2023-02-03 11:03] LABS: HEMATOCRIT 39.6 % (35.4-49); HEMOGLOBIN 13.8 GM/dL (11.7-16.9); MCH 28.5 pg (25.7-33.7); MCHC 34.8 g/dl (32.0-35.9); MEAN CELL VOLUME 81.7 fl (80-96); PLATELET COUNT 507 10^3/uL (134-434); RBC 4.85 M/mm3 (4.00-5.60); RDW 15.8 % (11.9-15.9); WHITE BLOOD COUNT 17.4 K/mm3 (4.0-10.0)
[2023-02-03] MEDS: MELATONIN 1 MG TABLET PO SCH (21:10)
[2023-02-04] MEDS: KETOROLAC TROMETHAMINE 30 MG/1 ML VIAL IVPUSH PRN (04:02)
[2023-02-04] MEDS: oxyCODONE HCL 5 MG TABLET PO PRN ×2 (05:43→21:54)
[2023-02-04 07:51] LABS: HEMATOCRIT 38.8 % (35.4-49); HEMOGLOBIN 13.8 GM/dL (11.7-16.9); MCH 29.3 pg (25.7-33.7); MCHC 35.6 g/dl (32.0-35.9); MEAN CELL VOLUME 82.4 fl (80-96); MEAN PLT VOLUME 7.2 fl (7.5-11.1); PLATELET COUNT 461 10^3/uL (134-434); RBC 4.71 M/mm3 (4.00-5.60); RDW 15.6 % (11.9-15.9); WHITE BLOOD COUNT 13.9 K/mm3 (4.0-10.0)
[2023-02-04 08:26] LABS: CALCIUM 9.1 mg/dL (8.5-10.1)
[2023-02-04 08:27] LABS: ALBUMIN 3.3 g/dl (3.4-5.0); BLOOD UREA NITROGEN 11.6 mg/dL (7-18); MAGNESIUM 2.1 mg/dL (1.8-2.4)
[2023-02-04 08:29] LABS: CREATININE 0.8 mg/dL (0.55-1.3)
[2023-02-04 08:30] LABS: BILIRUBIN,TOTAL 0.6 mg/dL (0.2-1); TOT PROT 7.3 g/dl (6.4-8.2)
[2023-02-04] MEDS: NICOTINE 14 MG/24 HOURS TOPICAL PATCH TD SCH (09:11)
[2023-02-04] MEDS: PANTOPRAZOLE 40 MG TABLET PO SCH (09:11)
[2023-02-04] MEDS: HEPARIN NA (PORCINE) 5,000 UNITS/ML 1ML VIAL SQ SCH ×2 (09:11→21:56)
[2023-02-04] MEDS: LORazepam 2 MG/ML SDV VIAL IVPUSH PRN (09:23)
[2023-02-04] MEDS ORDERED: methaDONE HCL 10 MG TABLET PO ONE ×2 (09:38→10:31)
[2023-02-04 15:10] VITALS: BMI 26.4
[2023-02-04] MEDS: GABAPENTIN 300 MG CAPSULE PO SCH ×2 (15:20→21:56)
[2023-02-04] MEDS: MELATONIN 1 MG TABLET PO SCH (21:56)
[2023-02-05] MEDS: oxyCODONE HCL 5 MG TABLET PO PRN (02:43)
[2023-02-05] MEDS: GABAPENTIN 300 MG CAPSULE PO SCH ×2 (06:50→13:56)
[2023-02-05 07:34] LABS: HEMATOCRIT 36.7 % (35.4-49); HEMOGLOBIN 13.1 GM/dL (11.7-16.9); MCH 29.7 pg (25.7-33.7); MCHC 35.7 g/dl (32.0-35.9); MEAN CELL VOLUME 83.1 fl (80-96); MEAN PLT VOLUME 7.3 fl (7.5-11.1); PLATELET COUNT 486 10^3/uL (134-434); RBC 4.42 M/mm3 (4.00-5.60); RDW 15.7 % (11.9-15.9); WHITE BLOOD COUNT 13.2 K/mm3 (4.0-10.0)
[2023-02-05 08:02] LABS: ALBUMIN 3.1 g/dl (3.4-5.0); CALCIUM 8.9 mg/dL (8.5-10.1)
[2023-02-05 08:03] LABS: BLOOD UREA NITROGEN 12.3 mg/dL (7-18); MAGNESIUM 2.2 mg/dL (1.8-2.4)
[2023-02-05 08:05] LABS: CREATININE 0.8 mg/dL (0.55-1.3)
[2023-02-05 08:06] LABS: PHOSPHOROUS 4.7 mg/dL (2.5-4.9)
[2023-02-05 08:07] LABS: BILIRUBIN,TOTAL 0.4 mg/dL (0.2-1)
[2023-02-05] MEDS: NICOTINE 14 MG/24 HOURS TOPICAL PATCH TD SCH (09:05)
[2023-02-05] MEDS: PANTOPRAZOLE 40 MG TABLET PO SCH (09:05)
[2023-02-05] MEDS: HEPARIN NA (PORCINE) 5,000 UNITS/ML 1ML VIAL SQ SCH (09:05)
[2023-02-05] MEDS ORDERED: POLYETHYLENE GLYCOL (HEALTHYLAX) 3350 17 GM PACKET PO SCH (10:00)
[2023-02-05 14:18] VITALS: BP 113/79; PULSE 116; RESP 18; TEMP 98.7
== END 2023-02-05 14:51 | disposition home or self-care (01) | DRG 120 ==
LOC: JER 14:22 → JERBED 18:05 → J4W 01-30 00:15 → JICU 02-02 17:00
PROVIDERS: ADMIT Internal Medicine; ATTEND Internal Medicine
PROC: 0W9B30Z Drainage of Left Pleural Cavity with Drainage Device, Percutaneous Approach (ICD-10-PCS; 2023-02-02)
PROC: 3E0L4GC Introduction of Other Therapeutic Substance into Pleural Cavity, Percutaneous Endoscopic Approach (ICD-10-PCS; 2023-02-02)
PROC: 0BBG4ZZ Excision of Left Upper Lung Lobe, Percutaneous Endoscopic Approach (ICD-10-PCS; principal; 2023-02-02 10:30)
DX: J93.0 Spontaneous tension pneumothorax (principal); F11.20 Opioid dependence, uncomplicated; F12.20 Cannabis dependence, uncomplicated; F17.210 Nicotine dependence, cigarettes, uncomplicated; F31.81 Bipolar II disorder; J45.909 Unspecified asthma, uncomplicated; J93.82 Other air leak; R07.9 Chest pain, unspecified
CPT/HCPCS: 0241U-QW; 36415; 71045-TC-FY; 71275-TC; 80048; 80053; 80061; 80307; 81003; 82962; 83690; 83735; 84100; 84484; 85025; 85027; 85379; 85610; 85651; 85730; 86140; 86850; 86900; 86901; 87040; 87086; 88307-TC; 93005; 93010; 93306-TC; 94760; 99284-25; 99285-25; G0008; J1644; Q2036; Q9967

== ENCOUNTER 2023-06-08 23:08 | Emergency (ER) | payer OTHER ==
[2023-06-08 23:17] VITALS: BMI 26.6
[2023-06-09] MEDS ORDERED: ACETAMINOPHEN 1000 MG/100 ML BAG IVPB ONE (00:23)
[2023-06-09] MEDS ORDERED: LACTATED RINGERS SOLUTION 1,000 ML/1,000 ML INFUS.BAG IV SCH (00:30)
[2023-06-09] MEDS ORDERED: ACETAMINOPHEN INJECTION 100 ML IVPB ONE (00:31)
[2023-06-09 00:57] LABS: VENOUS O2 SATURATION 98.9 % (70-80); VENOUS PCO2 41.6 mmHg (38-52); VENOUS PH 7.41 (7.310-7.410)
[2023-06-09 01:00] LABS: BASO % 0.4 % (0-2.0); HEMATOCRIT 36.8 % (35.4-49); HEMOGLOBIN 12.6 GM/dL (11.7-16.9); MCH 28.8 pg (25.7-33.7); MCHC 34.2 g/dl (32.0-35.9); MEAN CELL VOLUME 84.3 fl (80-96); MEAN PLT VOLUME 7.2 fl (7.5-11.1); MONO % 12.2 % (3.8-10.2); NEUT % 54.4 % (42.8-82.8); PLATELET COUNT 533 10^3/uL (134-434); RBC 4.37 M/mm3 (4.00-5.60); RDW 14.3 % (11.9-15.9); WHITE BLOOD COUNT 11.9 K/mm3 (4.0-10.0)
[2023-06-09 01:06] VITALS: BP 117/82; PULSE 74; RESP 18; TEMP 97.7
[2023-06-09 01:16] LABS: POTASSIUM 4.2 mmol/L (3.5-5.1)
[2023-06-09 01:18] LABS: ALBUMIN 3.4 g/dl (3.4-5.0); CALCIUM 8.4 mg/dL (8.5-10.1)
[2023-06-09 01:19] LABS: BLOOD UREA NITROGEN 14.1 mg/dL (7-18)
[2023-06-09 01:23] LABS: BILIRUBIN,TOTAL 0.1 mg/dL (0.2-1)
[2023-06-09 02:04] LABS: INR 1.05 (0.83-1.09); PROTHROMBIN TIME (PATIENT) 12.2 SEC (9.7-13.0)
[2023-06-09 02:06] LABS: ACTIVATED PTT 28.6 SECONDS (25.2-36.5)
== END 2023-06-09 01:58 | disposition home or self-care (01) ==
LOC: JER 23:08
PROC: 3E033NZ Introduction of Analgesics, Hypnotics, Sedatives into Peripheral Vein, Percutaneous Approach (ICD-10-PCS; principal; 2023-06-09)
DX: R07.89 Other chest pain (principal)
CPT/HCPCS: 36415; 71045-TC-FY; 80053; 82803; 83735; 84484; 85025; 85610; 85730; 86850; 86900; 86901; 93005; 93010; 99285-25

== ENCOUNTER 2025-08-22 12:12 | Emergency (ER) | payer OTHER ==
[2025-08-22 12:18] VITALS: RESP 20; BMI 25.8
[2025-08-22 14:24] LABS: MCHC 33.6 g/dl (32.3-36.5); MEAN CELL VOLUME 86.7 fl (79.0-92.2); MEAN PLT VOLUME 9.0 fl (9.4-12.4); RDW 14.1 % (12.1-15.9)
[2025-08-22 14:32] LABS: INR 1.05 (0.83-1.09); PROTHROMBIN TIME (PATIENT) 11.5 SEC (9.7-13.0)
[2025-08-22 14:35] LABS: ACTIVATED PTT 27.7 SECONDS (25.2-36.5)
[2025-08-22 15:01] LABS: GLUCOSE,RANDOM 62.0 mg/dL (74-106); TOT PROT 7.5 g/dl (6.4-8.2)
[2025-08-22 15:02] LABS: CO2 28.0 mmol/L (21-32)
[2025-08-22 15:03] LABS: ERYTHROCYTE SEDIMENTATION RATE 25 mm/hr (0-10)
[2025-08-22 15:04] LABS: ALK PHOS 88.0 U/L (40-150)
[2025-08-22 15:07] LABS: CREATININE 0.82 mg/dL (0.55-1.3); SGOT/AST 20.0 U/L (5-34); SGPT/ALT 13.0 U/L (0-55)
[2025-08-22] MEDS ORDERED: DALBAVANCIN HCL 500 MG VIAL (RESTRICTED TO ID ONLY) IVPB ONE (15:15)
[2025-08-22 15:23] LABS: HCV DIAGNOSTIC IN-HOUSE W/RFLX NON-REACTIVE (NONREACTIVE)
[2025-08-22] MEDS: DALBAVANCIN HCL 1,500 MG in DEXTROSE 5%-WATER - 500 ML IVPB ONE (15:30)
[2025-08-22 15:43] VITALS: BP 137/84; PULSE 75; TEMP 98
[2025-08-22 17:04] LABS: HIV INTERPRETATION NEGATIVE (NEGATIVE)
== END 2025-08-22 17:23 | disposition home or self-care (01) ==
LOC: JER 12:12
DX: S51.802A Unspecified open wound of left forearm, initial encounter (principal); F11.20 Opioid dependence, uncomplicated; W46.0XXA Contact with hypodermic needle, initial encounter
CPT/HCPCS: 36415; 73070-TC-LT-FY; 80053; 85027; 85610; 85651; 85730; 86140; 86803; 86850; 86900; 86901; 87040; 87389; 96365; 99284-25; J0875